=== PATIENT | female | born 1935 | race Two or more races ===

== ENCOUNTER → 2016-11-29 | Outpatient (CLI) | payer MEDICARE ==
[~2016-11-29] MED LIST: ADV250INH INH; AMLO10TA2 PO; ASPI325T PO; AVEL1TAB PO; BACITAB3 PO; CALC600T10 PO; FISH1000 PO; K-TA10TA2 PO; LASI20TA PO; NICO21PAT TD; OMEP20CA3 PO; SIMV20TA2 PO; VITA100066 PO; VITMTA PO
--- NOTE | 2016-11-29 13:41 | REP ---
Chest x-ray: Two views. History: Chronic obstructive pulmonary disease. Findings: The lungs are somewhat hyperinflated but clear. Heart size is at the upper range of normal. The aorta is calcific and a little tortuous. There are degenerative changes in the thoracic spine. Impression: Hyperinflation. Borderline heart size. Otherwise no acute disease. Signed by Kranthi Allred MD 11/29/2016 04:22 P
== END ==
LOC: M ADAMS 12:49
PROVIDERS: ATTEND Family Medicine
DX: J44.9 Chronic obstructive pulmonary disease, unspecified (principal); R91.8 Other nonspecific abnormal finding of lung field; I11.9 Hypertensive heart disease without heart failure; M19.90 Unspecified osteoarthritis, unspecified site; M46.92 Unspecified inflammatory spondylopathy, cervical region; E78.5 Hyperlipidemia, unspecified; E21.0 Primary hyperparathyroidism; M81.0 Age-related osteoporosis without current pathological fracture; Z72.0 Tobacco use; Z71.6 Tobacco abuse counseling; R93.1 Abnormal findings on diagnostic imaging of heart and coronary circulation
CPT/HCPCS: 71020; 94010; G0463

== ENCOUNTER → 2017-01-19 | Outpatient (REF) | payer MEDICARE ==
[2017-01-19 12:45] LABS: MEAN CORPUSCULAR HEMOGLOBIN 28.4 pg (27.0-33.0); MEAN CORPUSCULAR HGB CONC 32.3 g/dl (32.0-36.5); MEAN CORPUSCULAR VOLUME 87.9 fl (80.0-96.0); RED CELL DISTRIBUTION WIDTH 14.5 % (11.5-14.5); WHITE BLOOD COUNT 9.9 K/mm3 (4.0-10.0)
[2017-01-19 13:19] LABS: ALBUMIN 3.2 GM/DL (3.2-5.2); ALBUMIN/GLOBULIN RATIO 0.86 (1.00-1.93); ALKALINE PHOSPHATASE 55 U/L (45-117); ALT/SGPT 31 U/L (12-78); ANION GAP 7 MEQ/L (8-16); AST/SGOT 35 U/L (15-37); BILIRUBIN,TOTAL 0.4 MG/DL (0.2-1.0); BLOOD UREA NITROGEN 14 MG/DL (7-18); CALCIUM LEVEL 9.4 MG/DL (8.8-10.2); CARBON DIOXIDE LEVEL 29 MEQ/L (21-32); CHLORIDE LEVEL 107 MEQ/L (98-107); CHOLESTEROL LEVEL 170 MG/DL (<200); CREATININE FOR GFR 0.61 MG/DL (0.55-1.02); FREE T4 1.63 NG/DL (0.76-1.46); GLOMERULAR FILTRATION RATE > 60.0 (>39); GLUCOSE, FASTING 90 MG/DL (83-110); POTASSIUM SERUM 3.8 MEQ/L (3.5-5.1); SODIUM LEVEL 143 MEQ/L (136-145); TOTAL PROTEIN 6.9 GM/DL (6.4-8.2); TRIGLYCERIDES LEVEL 109 MG/DL (<150)
== END ==
LOC: M SFHCADAM 10:13
PROVIDERS: ATTEND Family Medicine
DX: M19.90 Unspecified osteoarthritis, unspecified site (principal); E78.5 Hyperlipidemia, unspecified; M81.0 Age-related osteoporosis without current pathological fracture

== ENCOUNTER → 2017-01-19 | Outpatient (CLI) | payer MEDICARE ==
--- NOTE | 2017-01-19 11:36 | REP ---
LEFT HAND, FOUR VIEWS: HISTORY: Inflammatory arthritis. There is no acute fracture or dislocation. There is narrowing of the metacarpal phalangeal , intermediate and distal interphalangeal joint spaces. Osteophytes are present at the distal interphalangeal joint spaces. There is narrowing of the first carpometacarpal joint space. A subchondral cyst is present in the radius. Calcification is present adjacent to the distal ulna. This likely represents chondrocalcinosis. There is a swan neck deformity of the distal interphalangeal joint of the second digit. IMPRESSION: Degenerative change as described above. Signed by Heraclio Hidalgo MD 01/19/2017 12:14 P
== END ==
LOC: M ADAMS 10:27
PROVIDERS: ATTEND Family Medicine
DX: M19.042 Primary osteoarthritis, left hand (principal); E78.5 Hyperlipidemia, unspecified; M81.0 Age-related osteoporosis without current pathological fracture

== ENCOUNTER → 2017-07-12 | Outpatient (REF) | payer MEDICARE ==
[~2017-07-12] MED LIST changes: -AVEL1TAB PO; +AVEL1TAB3 PO; +BACITAB PO; -BACITAB3 PO; -CALC600T10 PO; +CALC600T31 PO; +TRAM50TA2 PO
[2017-07-12 20:09] LABS: ANION GAP 5 MEQ/L (8-16); BLOOD UREA NITROGEN 23 MG/DL (7-18); CALCIUM LEVEL 9.9 MG/DL (8.8-10.2); CARBON DIOXIDE LEVEL 34 MEQ/L (21-32); CHLORIDE LEVEL 107 MEQ/L (98-107); CREATININE FOR GFR 0.78 MG/DL (0.55-1.02); GLOMERULAR FILTRATION RATE > 60.0 (>32); GLUCOSE, FASTING 125 MG/DL (83-110); SODIUM LEVEL 146 MEQ/L (136-145)
== END ==
LOC: M SFHCADAM 15:26
PROVIDERS: ATTEND Family Medicine
DX: M81.0 Age-related osteoporosis without current pathological fracture (principal); T45.8X5A Adverse effect of other primarily systemic and hematological agents, initial encounter; I11.9 Hypertensive heart disease without heart failure
CPT/HCPCS: 80048; G0463

== ENCOUNTER → 2017-11-02 | Outpatient (REF) | payer MEDICARE ==
[2017-11-02 19:09] LABS: HEMATOCRIT 41.5 % (36.0-47.0); MEAN CORPUSCULAR HEMOGLOBIN 30.3 pg (27.0-33.0); MEAN CORPUSCULAR HGB CONC 31.3 g/dl (32.0-36.5); MEAN CORPUSCULAR VOLUME 96.7 fl (80.0-96.0); PLATELET COUNT, AUTOMATED 276 10^3/uL (150-450); RED BLOOD COUNT 4.29 10^6/uL (4.00-5.40); RED CELL DISTRIBUTION WIDTH 14.9 % (11.5-14.5)
[2017-11-02 20:04] LABS: ALBUMIN 3.7 GM/DL (3.2-5.2); ALBUMIN/GLOBULIN RATIO 1.28 (1.00-1.93); ALKALINE PHOSPHATASE 44 U/L (45-117); ALT/SGPT 34 U/L (12-78); ANION GAP 6 MEQ/L (8-16); AST/SGOT 20 U/L (7-37); BILIRUBIN,TOTAL 0.2 MG/DL (0.2-1.0); BLOOD UREA NITROGEN 24 MG/DL (7-18); CALCIUM LEVEL 9.5 MG/DL (8.8-10.2); CARBON DIOXIDE LEVEL 32 MEQ/L (21-32); CHLORIDE LEVEL 108 MEQ/L (98-107); CHOLESTEROL LEVEL 180 MG/DL (<200); CREATININE FOR GFR 0.74 MG/DL (0.55-1.02); FREE T4 1.12 NG/DL (0.76-1.46); GLOMERULAR FILTRATION RATE > 60.0 (>32); GLUCOSE, FASTING 107 MG/DL (83-110); HDL CHOLESTEROL 75 MG/DL (>40); NON-HDL-C 105 MG/DL; POTASSIUM SERUM 4.1 MEQ/L (3.5-5.1); SODIUM LEVEL 146 MEQ/L (136-145); TOTAL PROTEIN 6.6 GM/DL (6.4-8.2); TRIGLYCERIDES LEVEL 100 MG/DL (<150)
== END ==
LOC: M SFHCADAM 15:19
DX: J44.9 Chronic obstructive pulmonary disease, unspecified (principal); I11.9 Hypertensive heart disease without heart failure; R94.6 Abnormal results of thyroid function studies; E78.5 Hyperlipidemia, unspecified
CPT/HCPCS: 84443

== ENCOUNTER → 2018-02-19 | Outpatient (REF) | payer MEDICARE | LOC: M LAB REF 18:41 | DX: N39.0 Urinary tract infection, site not specified (principal) | CPT/HCPCS: 87086 ==

== ENCOUNTER → 2018-04-03 | Outpatient (CLI) | payer MEDICARE | LOC: M RAD 13:51 | DX: N63.20 Unspecified lump in the left breast, unspecified quadrant (principal); R92.1 Mammographic calcification found on diagnostic imaging of breast; R92.8 Other abnormal and inconclusive findings on diagnostic imaging of breast | CPT/HCPCS: 77066 ==

== ENCOUNTER → 2018-04-25 | Outpatient (REF) | payer MEDICARE | LOC: M LAB REF 10:00 | DX: C50.012 Malignant neoplasm of nipple and areola, left female breast (principal) | CPT/HCPCS: 88305 ==

== ENCOUNTER 2018-05-15 13:15 | Day surgery (SDC) | payer MEDICARE ==
[2018-05-15] MEDS ORDERED: LIDOCAINE 1% MDV 20ML VIAL SQ (13:30)
[2018-05-15] MEDS: LR 1,000 ML IV (14:00)
[2018-05-15] MEDS ORDERED: LIDOCAINE 2% INJ 100 MG/5 ML SDV (FOR ANES.) As Ordered (14:45)
[2018-05-15] MEDS ORDERED: ROCURONIUM BROMIDE 50 MG/5 ML VIAL As Ordered (14:45)
[2018-05-15] MEDS ORDERED: dexameTHASONE 4 MG/ML 1ML VIAL (J1100) As Ordered (14:45)
[2018-05-15] MEDS ORDERED: PROPOFOL 200 MG/20 ML VIAL As Ordered ×2 (14:45→16:44)
[2018-05-15] MEDS ORDERED: ONDANSETRON 4MG/2ML VIAL (J2405) As Ordered (14:45)
[2018-05-15] MEDS ORDERED: fentaNYL 100 MCG/2 ML INJECTION (J3010) As Ordered (16:00)
[2018-05-15] MEDS ORDERED: MIDAZOLAM INJ 2 MG/2 ML VIAL (J2250) As Ordered (16:03)
[2018-05-15] MEDS ORDERED: KETOROLAC 60 MG/2 ML VIAL (J1885) As Ordered (16:35)
[2018-05-15] MEDS: LIDOCAINE 1% SDV INJ 30 ML VIAL As Ordered ×2 (17:13→17:14)
[2018-05-15] MEDS ORDERED: PERCOCET 5MG/325MG TAB PO (18:45)
[2018-05-15] MEDS ORDERED: fentaNYL 100 MCG/2 ML INJECTION (J3010) IV (18:45)
[2018-05-15] MEDS ORDERED: LR 1,000 ML IV (18:45)
[2018-05-15] MEDS ORDERED: traMADol 50 MG TAB PO (18:45)
[2018-05-15] MEDS ORDERED: MORPHINE 10 MG/ML 1ML VIAL (J2270) IV (18:45)
[2018-05-15] MEDS ORDERED: ACETAMINOPHEN TAB 650MG DOSE (2X325MG) PO (18:45)
[2018-05-15] MEDS ORDERED: ONDANSETRON 4MG/2ML VIAL (J2405) IV (18:45)
== END 2018-05-15 19:05 | disposition home or self-care (01) ==
LOC: M SDC 13:15
DX: C50.912 Malignant neoplasm of unspecified site of left female breast (principal); E78.5 Hyperlipidemia, unspecified; K21.9 Gastro-esophageal reflux disease without esophagitis; F17.210 Nicotine dependence, cigarettes, uncomplicated; Z79.82 Long term (current) use of aspirin; Z79.899 Other long term (current) drug therapy; Z17.1 Estrogen receptor negative status [ER-]
CPT/HCPCS: 19301

== ENCOUNTER 2018-06-09 10:17 | Emergency (ER) | payer MEDICARE ==
[2018-06-09 11:16] LABS: BASO # 0.1 10^3/uL (0.0-0.2); BASO % 0.5 % (0.0-1.0); EOS # 0.3 10^3/uL (0.0-0.50); EOS % 3.2 % (0.0-3.0); HEMATOCRIT 41.7 % (36.0-47.0); HEMOGLOBIN 13.7 g/dl (12.0-15.5); IMMATURE GRANULOCYTE % 0.4 % (0-3.0); LYMPH # 1.5 10^3/uL (1.5-4.5); LYMPH % 14.9 % (24.0-44.0); MEAN CORPUSCULAR HEMOGLOBIN 30.9 pg (27.0-33.0); MEAN CORPUSCULAR HGB CONC 32.9 g/dl (32.0-36.5); MEAN CORPUSCULAR VOLUME 94.1 fl (80.0-96.0); MONO # 0.9 10^3/uL (0.0-0.8); NEUTROPHILS # 7.5 10^3/uL (1.8-7.7); PLATELET COUNT, AUTOMATED 212 10^3/uL (150-450); RED BLOOD COUNT 4.43 10^6/uL (4.00-5.40); RED CELL DISTRIBUTION WIDTH 14.5 % (11.5-14.5); WHITE BLOOD COUNT 10.4 10^3/uL (4.0-10.0)
[2018-06-09 11:25] LABS: PROTHROMBIN TIME 12.2 SECONDS (12.1-14.4)
[2018-06-09] MEDS: ONDANSETRON 4MG/2ML VIAL (J2405) IV (11:39)
[2018-06-09] MEDS: MORPHINE 2 MG/ML 1ML SYRINGE (J2270) IV ×2 (11:40→12:17)
[2018-06-09 11:44] LABS: ALBUMIN/GLOBULIN RATIO 0.97 (1.00-1.93); ALKALINE PHOSPHATASE 43 U/L (45-117); ALT/SGPT 29 U/L (12-78); ANION GAP 6 MEQ/L (8-16); AST/SGOT 23 U/L (7-37); BILIRUBIN,DIRECT 0.1 MG/DL (0.0-0.2); BILIRUBIN,TOTAL 0.3 MG/DL (0.2-1.0); BLOOD UREA NITROGEN 15 MG/DL (7-18); CALCIUM LEVEL 8.6 MG/DL (8.8-10.2); CARBON DIOXIDE LEVEL 29 MEQ/L (21-32); CHLORIDE LEVEL 110 MEQ/L (98-107); CPK CREATINE PHOSPHOKINASE 128 U/L (26-192); CREATININE FOR GFR 0.78 MG/DL (0.55-1.30); GLOMERULAR FILTRATION RATE > 60.0 (>32); GLUCOSE, FASTING 90 MG/DL (70-100); LIPASE 97 U/L (73-393); MB/CK RELATIVE INDEX 2.34 (< OR =4); SODIUM LEVEL 145 MEQ/L (136-145); TOTAL PROTEIN 6.1 GM/DL (6.4-8.2); TROPONIN I < 0.02 NG/ML (< 0.10)
[2018-06-09 11:49] LABS: NT-PRO BNP 851 PG/ML (<450)
[2018-06-09] MEDS: NORCO, ANEXSIA 5/325MG TABLET (HYDROcodone/ACETAMINOPHEN) PO (13:48)
== END 2018-06-09 14:40 | disposition home or self-care (01) ==
LOC: M ED 10:17
DX: R07.9 Chest pain, unspecified (principal); R10.9 Unspecified abdominal pain; K57.90 Diverticulosis of intestine, part unspecified, without perforation or abscess without bleeding; K80.20 Calculus of gallbladder without cholecystitis without obstruction; K21.9 Gastro-esophageal reflux disease without esophagitis; E78.00 Pure hypercholesterolemia, unspecified; F17.200 Nicotine dependence, unspecified, uncomplicated
CPT/HCPCS: J2405

== ENCOUNTER 2018-06-13 10:49 | Inpatient (IN) | payer MEDICARE ==
[2018-06-13] MEDS ORDERED: ONDANSETRON 4MG/2ML VIAL (J2405) As Ordered (11:24)
[2018-06-13] MEDS: ONDANSETRON 4MG/2ML VIAL (J2405) IV (11:29)
[2018-06-13 11:38] LABS: BASO # 0.1 10^3/uL (0.0-0.2); BASO % 0.5 % (0.0-1.0); EOS # 0.1 10^3/uL (0.0-0.50); EOS % 1.1 % (0.0-3.0); HEMATOCRIT 41.7 % (36.0-47.0); HEMOGLOBIN 13.7 g/dl (12.0-15.5); IMMATURE GRANULOCYTE % 0.4 % (0-3.0); LYMPH # 1.1 10^3/uL (1.5-4.5); LYMPH % 11.1 % (24.0-44.0); MEAN CORPUSCULAR HEMOGLOBIN 30.4 pg (27.0-33.0); MEAN CORPUSCULAR HGB CONC 32.9 g/dl (32.0-36.5); MEAN CORPUSCULAR VOLUME 92.5 fl (80.0-96.0); MONO # 0.6 10^3/uL (0.0-0.8); MONO % 5.9 % (0.0-5.0); NEUTROPHILS # 7.8 10^3/uL (1.8-7.7); PLATELET COUNT, AUTOMATED 212 10^3/uL (150-450); RED BLOOD COUNT 4.51 10^6/uL (4.00-5.40); RED CELL DISTRIBUTION WIDTH 14.2 % (11.5-14.5); WHITE BLOOD COUNT 9.7 10^3/uL (4.0-10.0)
[2018-06-13 12:00] LABS: ALBUMIN 3.4 GM/DL (3.2-5.2); ALBUMIN/GLOBULIN RATIO 0.94 (1.00-1.93); ALKALINE PHOSPHATASE 45 U/L (45-117); ALT/SGPT 33 U/L (12-78); ANION GAP 9 MEQ/L (8-16); AST/SGOT 30 U/L (7-37); BILIRUBIN,DIRECT 0.1 MG/DL (0.0-0.2); BILIRUBIN,TOTAL 0.3 MG/DL (0.2-1.0); BLOOD UREA NITROGEN 17 MG/DL (7-18); CALCIUM LEVEL 9.2 MG/DL (8.8-10.2); CARBON DIOXIDE LEVEL 28 MEQ/L (21-32); CHLORIDE LEVEL 104 MEQ/L (98-107); CPK CREATINE PHOSPHOKINASE 166 U/L (26-192); CREATININE FOR GFR 0.75 MG/DL (0.55-1.30); GLOMERULAR FILTRATION RATE > 60.0 (>32); GLUCOSE, FASTING 80 MG/DL (70-100); LIPASE 74 U/L (73-393); POTASSIUM SERUM 3.9 MEQ/L (3.5-5.1); SODIUM LEVEL 141 MEQ/L (136-145); TROPONIN I 0.09 NG/ML (< 0.10)
[2018-06-13] MEDS: MORPHINE 4 MG/ML 1ML VIAL/SYRINGE (J2270) IV ×3 (12:01→17:33)
[2018-06-13 12:06] LABS: CK-MB VALUE MASS 5.9 NG/ML (<3.6); MB/CK RELATIVE INDEX 3.55 (< OR =4); NT-PRO BNP 1579 PG/ML (<450)
[2018-06-13] MEDS: ULTRACET TAB PO (17:54)
[2018-06-13] MEDS: ACYCLOVIR 500 MG in D5W MINI-BAG PLUS 100 ML IV (17:54)
[2018-06-13] MEDS: PREGABALIN 100 MG CAP (LYRICA) PO ×2 (20:40→20:52)
[2018-06-13] MEDS: HYDROXYCHLOROQUINE 200 MG TAB PO ×2 (20:40→22:44)
[2018-06-13] MEDS: ASPIRIN 325 MG TAB PO (20:51)
[2018-06-13] MEDS: SIMVASTATIN 20 MG TAB PO (20:52)
[2018-06-13] MEDS: FOLIC ACID 1 MG TAB PO (20:52)
[2018-06-13] MEDS: VITAMIN D 1,000 INTERNATIONAL UNITS TABLET PO (20:52)
[2018-06-13] MEDS: OMEPRAZOLE 20 MG CAP PO (20:52)
[2018-06-13] MEDS: traMADol 50 MG TAB PO (20:55)
[2018-06-13] MEDS: LATANOPROST 0.005% OPHTH SOLN 2.5 ML OU (20:58)
[2018-06-13] MEDS: ADVAIR HFA 115/21MCG INHALER INH (21:00)
[2018-06-14] MEDS: ACYCLOVIR 500 MG in D5W MINI-BAG PLUS 100 ML IV ×3 (02:13→17:44)
[2018-06-14] MEDS: MORPHINE 4 MG/ML 1ML VIAL/SYRINGE (J2270) IV (04:51)
[2018-06-14 06:24] LABS: BASO % 0.4 % (0.0-1.0); EOS # 0.2 10^3/uL (0.0-0.50); EOS % 1.7 % (0.0-3.0); HEMATOCRIT 39.3 % (36.0-47.0); HEMOGLOBIN 13.3 g/dl (12.0-15.5); IMMATURE GRANULOCYTE % 0.5 % (0-3.0); LYMPH # 0.9 10^3/uL (1.5-4.5); LYMPH % 8.7 % (24.0-44.0); MEAN CORPUSCULAR HEMOGLOBIN 30.4 pg (27.0-33.0); MEAN CORPUSCULAR HGB CONC 33.8 g/dl (32.0-36.5); MEAN CORPUSCULAR VOLUME 89.7 fl (80.0-96.0); MONO # 0.9 10^3/uL (0.0-0.8); MONO % 8.5 % (0.0-5.0); NEUTROPHILS # 8.7 10^3/uL (1.8-7.7); NEUTROPHILS % 80.2 % (36.0-66.0); PLATELET COUNT, AUTOMATED 198 10^3/uL (150-450); RED BLOOD COUNT 4.38 10^6/uL (4.00-5.40); RED CELL DISTRIBUTION WIDTH 13.6 % (11.5-14.5); WHITE BLOOD COUNT 10.8 10^3/uL (4.0-10.0)
[2018-06-14 06:47] LABS: ALBUMIN/GLOBULIN RATIO 0.83 (1.00-1.93); ALKALINE PHOSPHATASE 39 U/L (45-117); ALT/SGPT 29 U/L (12-78); ANION GAP 10 MEQ/L (8-16); AST/SGOT 31 U/L (7-37); BILIRUBIN,TOTAL 0.5 MG/DL (0.2-1.0); BLOOD UREA NITROGEN 13 MG/DL (7-18); CALCIUM LEVEL 8.6 MG/DL (8.8-10.2); CARBON DIOXIDE LEVEL 27 MEQ/L (21-32); CHLORIDE LEVEL 102 MEQ/L (98-107); CREATININE FOR GFR 0.54 MG/DL (0.55-1.30); GLOMERULAR FILTRATION RATE > 60.0 (>32); GLUCOSE, FASTING 59 MG/DL (70-100); MAGNESIUM LEVEL 1.7 MG/DL (1.8-2.4); POTASSIUM SERUM 3.8 MEQ/L (3.5-5.1); SODIUM LEVEL 139 MEQ/L (136-145); THYROID STIMULATING HORMONE 0.813 uIU/ML (0.358-3.740); TOTAL PROTEIN 6.6 GM/DL (6.4-8.2)
[2018-06-14 07:41] LABS: BEDSIDE GLUCOSE 82 MG/DL (83-110)
[2018-06-14] MEDS: ADVAIR HFA 115/21MCG INHALER INH ×2 (08:09→21:25)
[2018-06-14] MEDS: FOLIC ACID 1 MG TAB PO ×2 (08:47→20:40)
[2018-06-14] MEDS: MULTIVITAMINS/MINERALS THERAP 1 TAB PO (08:47)
[2018-06-14] MEDS: ASPIRIN 325 MG TAB PO ×2 (08:47→20:40)
[2018-06-14] MEDS: PREGABALIN 100 MG CAP (LYRICA) PO ×2 (08:47→14:41)
[2018-06-14] MEDS: HYDROXYCHLOROQUINE 200 MG TAB PO (08:47)
[2018-06-14] MEDS: ALBUTEROL SULFATE 2.5 MG/0.5 ML INH NEB SOLN INH ×3 (12:00→21:24)
[2018-06-14] MEDS ORDERED: ALBUTEROL SULFATE 2.5 MG/0.5 ML INH NEB SOLN INH (13:45)
[2018-06-14] MEDS: LATANOPROST 0.005% OPHTH SOLN 2.5 ML OU (20:40)
[2018-06-14] MEDS: OMEPRAZOLE 20 MG CAP PO (20:40)
[2018-06-14] MEDS: VITAMIN D 1,000 INTERNATIONAL UNITS TABLET PO (20:40)
[2018-06-14] MEDS: SIMVASTATIN 20 MG TAB PO (20:40)
[2018-06-14] MEDS: ACETAMINOPHEN TAB 650MG DOSE (2X325MG) PO (20:54)
[2018-06-15] MEDS: ACYCLOVIR 500 MG in D5W MINI-BAG PLUS 100 ML IV ×3 (01:58→17:19)
[2018-06-15] MEDS: ADVAIR HFA 115/21MCG INHALER INH ×2 (07:25→20:27)
[2018-06-15] MEDS: ALBUTEROL SULFATE 2.5 MG/0.5 ML INH NEB SOLN INH ×4 (07:26→20:27)
[2018-06-15] MEDS: PREGABALIN 100 MG CAP (LYRICA) PO ×3 (09:00→22:03)
[2018-06-15] MEDS: HYDROXYCHLOROQUINE 200 MG TAB PO ×2 (09:00→22:03)
[2018-06-15] MEDS: FOLIC ACID 1 MG TAB PO ×2 (09:05→22:03)
[2018-06-15] MEDS: ASPIRIN 325 MG TAB PO ×2 (09:05→22:03)
[2018-06-15] MEDS: MULTIVITAMINS/MINERALS THERAP 1 TAB PO (09:05)
[2018-06-15] MEDS ORDERED: methylPREDNISolone SUSP 40 MG/ML (DEPO-medrol) VIAL (J1030) As Ordered (12:00)
[2018-06-15] MEDS ORDERED: LIDOCAINE 1% SDV INJ 30 ML VIAL As Ordered (12:00)
[2018-06-15] MEDS ORDERED: ISOVUE-M 300 61% 15ML VIAL (Q9967) As Ordered (12:01)
[2018-06-15] MEDS: LATANOPROST 0.005% OPHTH SOLN 2.5 ML OU (21:00)
[2018-06-15] MEDS: SIMVASTATIN 20 MG TAB PO (22:03)
[2018-06-15] MEDS: VITAMIN D 1,000 INTERNATIONAL UNITS TABLET PO (22:03)
[2018-06-15] MEDS: OMEPRAZOLE 20 MG CAP PO (22:03)
[2018-06-16] MEDS: ACYCLOVIR 500 MG in D5W MINI-BAG PLUS 100 ML IV (01:23)
[2018-06-16 06:01] LABS: HEMATOCRIT 38.7 % (36.0-47.0); MEAN CORPUSCULAR HEMOGLOBIN 30.2 pg (27.0-33.0); MEAN CORPUSCULAR HGB CONC 33.6 g/dl (32.0-36.5); PLATELET COUNT, AUTOMATED 186 10^3/uL (150-450); RED CELL DISTRIBUTION WIDTH 14.6 % (11.5-14.5); WHITE BLOOD COUNT 11.8 10^3/uL (4.0-10.0)
[2018-06-16 06:17] LABS: ANION GAP 9 MEQ/L (8-16); BLOOD UREA NITROGEN 28 MG/DL (7-18); CALCIUM LEVEL 9.3 MG/DL (8.8-10.2); CARBON DIOXIDE LEVEL 28 MEQ/L (21-32); CHLORIDE LEVEL 104 MEQ/L (98-107); CREATININE FOR GFR 2.85 MG/DL (0.55-1.30); GLOMERULAR FILTRATION RATE 16.9 (>32); GLUCOSE, FASTING 129 MG/DL (70-100); MAGNESIUM LEVEL 2.4 MG/DL (1.8-2.4); POTASSIUM SERUM 3.7 MEQ/L (3.5-5.1); SODIUM LEVEL 141 MEQ/L (136-145)
[2018-06-16] MEDS: ALBUTEROL SULFATE 2.5 MG/0.5 ML INH NEB SOLN INH ×4 (08:00→20:00)
[2018-06-16] MEDS: ADVAIR HFA 115/21MCG INHALER INH ×2 (08:00→21:41)
[2018-06-16] MEDS: FOLIC ACID 1 MG TAB PO (10:00)
[2018-06-16] MEDS: ASPIRIN 325 MG TAB PO ×2 (10:00→22:06)
[2018-06-16] MEDS: HYDROXYCHLOROQUINE 200 MG TAB PO ×2 (10:00→22:06)
[2018-06-16] MEDS: MULTIVITAMINS/MINERALS THERAP 1 TAB PO (10:00)
[2018-06-16] MEDS: D5W/0.45% SODIUM CHLORIDE 1,000 ML IV ×2 (10:20→18:01)
[2018-06-16 16:49] LABS: ALBUMIN 2.5 GM/DL (3.2-5.2); ANION GAP 10 MEQ/L (8-16); BLOOD UREA NITROGEN 34 MG/DL (7-18); CALCIUM LEVEL 8.7 MG/DL (8.8-10.2); CARBON DIOXIDE LEVEL 27 MEQ/L (21-32); CHLORIDE LEVEL 104 MEQ/L (98-107); CREATININE FOR GFR 3.54 MG/DL (0.55-1.30); GLOMERULAR FILTRATION RATE 13.2 (>32); GLUCOSE, FASTING 136 MG/DL (70-100); PHOSPHORUS LEVEL 3.5 MG/DL (2.5-4.9); POTASSIUM SERUM 3.5 MEQ/L (3.5-5.1); SODIUM LEVEL 141 MEQ/L (136-145)
[2018-06-16] MEDS: FAMOTIDINE 20 MG TAB PO (18:00)
[2018-06-16] MEDS: LATANOPROST 0.005% OPHTH SOLN 2.5 ML OU (22:06)
[2018-06-17] MEDS: D5W/0.45% SODIUM CHLORIDE 1,000 ML IV (01:45)
[2018-06-17 06:33] LABS: HEMATOCRIT 34.2 % (36.0-47.0); HEMOGLOBIN 11.6 g/dl (12.0-15.5); MEAN CORPUSCULAR HEMOGLOBIN 30.9 pg (27.0-33.0); MEAN CORPUSCULAR HGB CONC 33.9 g/dl (32.0-36.5); PLATELET COUNT, AUTOMATED 199 10^3/uL (150-450); RED BLOOD COUNT 3.76 10^6/uL (4.00-5.40); RED CELL DISTRIBUTION WIDTH 14.6 % (11.5-14.5); WHITE BLOOD COUNT 12.5 10^3/uL (4.0-10.0)
[2018-06-17 06:45] LABS: ANION GAP 7 MEQ/L (8-16); BLOOD UREA NITROGEN 35 MG/DL (7-18); CALCIUM LEVEL 8.4 MG/DL (8.8-10.2); CARBON DIOXIDE LEVEL 27 MEQ/L (21-32); CHLORIDE LEVEL 102 MEQ/L (98-107); CREATININE FOR GFR 3.54 MG/DL (0.55-1.30); GLOMERULAR FILTRATION RATE 13.2 (>32); GLUCOSE, FASTING 116 MG/DL (70-100); POTASSIUM SERUM 3.5 MEQ/L (3.5-5.1); SODIUM LEVEL 136 MEQ/L (136-145)
[2018-06-17] MEDS: ALBUTEROL SULFATE 2.5 MG/0.5 ML INH NEB SOLN INH ×4 (08:00→20:00)
[2018-06-17] MEDS: ADVAIR HFA 115/21MCG INHALER INH ×2 (08:37→21:36)
[2018-06-17] MEDS: FAMOTIDINE 20 MG TAB PO (09:40)
[2018-06-17] MEDS: ASPIRIN 325 MG TAB PO ×2 (09:40→21:55)
[2018-06-17] MEDS: HYDROXYCHLOROQUINE 200 MG TAB PO (10:18)
[2018-06-17] MEDS: KCL 20MEQ IN D5/0.45NS 1000ML 1,000 ML IV ×2 (11:43→20:06)
[2018-06-17] MEDS: ACETAMINOPHEN TAB 650MG DOSE (2X325MG) PO (17:16)
[2018-06-17] MEDS: LATANOPROST 0.005% OPHTH SOLN 2.5 ML OU (21:55)
[2018-06-18 00:07] LABS: APPEARANCE, URINE CLEAR (CLEAR); BACTERIA, URINE AUTO 1+ (NEGATIVE); BILIRUBIN, URINE AUTO NEGATIVE (NEGATIVE); BLOOD, URINE BLOOD NEGATIVE (NEGATIVE); COLOR, URINE STRAW (YELLOW); GLUCOSE, URINE (UA) AUTO NEGATIVE (NEGATIVE); KETONE, URINE AUTO NEGATIVE (NEGATIVE); LEUKOCYTE ESTERASE, URINE AUTO NEGATIVE (NEGATIVE); MUCUS, URINE SMALL (NEGATIVE); NITRITE, URINE AUTO NEGATIVE (NEGATIVE); PROTEIN, URINE AUTO NEGATIVE (NEGATIVE); RBC, URINE AUTO 2 /HPF (0-3); SPECIFIC GRAVITY URINE AUTO 1.005 (1.002-1.035); SQUAMOUS EPITHELIAL CELL UR AU 0 /HPF (0-6); UROBILINOGEN, URINE AUTO 0.2 mg/dL (0.0-2.0); WBC, URINE AUTO 3 /HPF (0-3)
[2018-06-18 06:08] LABS: HEMATOCRIT 36.5 % (36.0-47.0); HEMOGLOBIN 12.3 g/dl (12.0-15.5); MEAN CORPUSCULAR HEMOGLOBIN 30.9 pg (27.0-33.0); MEAN CORPUSCULAR HGB CONC 33.7 g/dl (32.0-36.5); MEAN CORPUSCULAR VOLUME 91.7 fl (80.0-96.0); PLATELET COUNT, AUTOMATED 224 10^3/uL (150-450); RED BLOOD COUNT 3.98 10^6/uL (4.00-5.40); RED CELL DISTRIBUTION WIDTH 14.9 % (11.5-14.5); WHITE BLOOD COUNT 12.3 10^3/uL (4.0-10.0)
[2018-06-18 06:09] LABS: ANION GAP 8 MEQ/L (8-16); BLOOD UREA NITROGEN 30 MG/DL (7-18); CARBON DIOXIDE LEVEL 27 MEQ/L (21-32); CHLORIDE LEVEL 110 MEQ/L (98-107); CREATININE FOR GFR 1.89 MG/DL (0.55-1.30); GLOMERULAR FILTRATION RATE 27.2 (>32); GLUCOSE, FASTING 97 MG/DL (70-100); POTASSIUM SERUM 3.9 MEQ/L (3.5-5.1); SODIUM LEVEL 145 MEQ/L (136-145)
[2018-06-18] MEDS: ACETAMINOPHEN TAB 650MG DOSE (2X325MG) PO (06:17)
[2018-06-18] MEDS: ALBUTEROL SULFATE 2.5 MG/0.5 ML INH NEB SOLN INH ×4 (08:00→20:16)
[2018-06-18] MEDS: ADVAIR HFA 115/21MCG INHALER INH ×2 (08:18→20:16)
[2018-06-18] MEDS: ENOXAPARIN 30 MG/0.3 ML SYR (J1650) SC (09:00)
[2018-06-18] MEDS: ASPIRIN 325 MG TAB PO ×2 (09:13→21:31)
[2018-06-18] MEDS: FAMOTIDINE 20 MG TAB PO (09:13)
[2018-06-18] MEDS: HYDROXYCHLOROQUINE 200 MG TAB PO (09:13)
[2018-06-18] MEDS: traMADol 50 MG TAB PO ×2 (09:42→22:29)
[2018-06-18] MEDS ORDERED: LIDOCAINE 1% MDV 20ML VIAL As Ordered (16:56)
[2018-06-18] MEDS: PIPERACILLIN/TAZOBACTAM SOD 2.25 GM in D5W MINI-BAG PLUS 50 ML IV ×2 (17:42→21:31)
[2018-06-18] MEDS: SODIUM CHLORIDE 0.9% INJ 10 ML SYR IV (18:00)
[2018-06-18] MEDS: LATANOPROST 0.005% OPHTH SOLN 2.5 ML OU (21:31)
[2018-06-19] MEDS: PIPERACILLIN/TAZOBACTAM SOD 2.25 GM in D5W MINI-BAG PLUS 50 ML IV ×4 (04:07→21:26)
[2018-06-19] MEDS: SODIUM CHLORIDE 0.9% INJ 10 ML SYR IV ×2 (05:22→17:45)
[2018-06-19 05:33] LABS: HEMATOCRIT 33.7 % (36.0-47.0); HEMOGLOBIN 11.2 g/dl (12.0-15.5); MEAN CORPUSCULAR HEMOGLOBIN 30.9 pg (27.0-33.0); MEAN CORPUSCULAR HGB CONC 33.2 g/dl (32.0-36.5); MEAN CORPUSCULAR VOLUME 93.1 fl (80.0-96.0); PLATELET COUNT, AUTOMATED 216 10^3/uL (150-450); RED BLOOD COUNT 3.62 10^6/uL (4.00-5.40); RED CELL DISTRIBUTION WIDTH 14.8 % (11.5-14.5); WHITE BLOOD COUNT 9.5 10^3/uL (4.0-10.0)
[2018-06-19] MEDS: ACETAMINOPHEN TAB 650MG DOSE (2X325MG) PO ×2 (05:47→16:33)
[2018-06-19 05:53] LABS: ANION GAP 8 MEQ/L (8-16); BLOOD UREA NITROGEN 33 MG/DL (7-18); CALCIUM LEVEL 8.8 MG/DL (8.8-10.2); CARBON DIOXIDE LEVEL 29 MEQ/L (21-32); CHLORIDE LEVEL 111 MEQ/L (98-107); CREATININE FOR GFR 1.25 MG/DL (0.55-1.30); GLOMERULAR FILTRATION RATE 43.8 (>32); GLUCOSE, FASTING 105 MG/DL (70-100); POTASSIUM SERUM 4.1 MEQ/L (3.5-5.1); SODIUM LEVEL 148 MEQ/L (136-145)
[2018-06-19] MEDS: ADVAIR HFA 115/21MCG INHALER INH ×2 (07:40→20:31)
[2018-06-19] MEDS: ALBUTEROL SULFATE 2.5 MG/0.5 ML INH NEB SOLN INH ×4 (07:40→20:00)
[2018-06-19] MEDS: ENOXAPARIN 30 MG/0.3 ML SYR (J1650) SC (08:21)
[2018-06-19] MEDS: FAMOTIDINE 20 MG TAB PO (08:21)
[2018-06-19] MEDS: ASPIRIN 325 MG TAB PO ×2 (08:21→21:25)
[2018-06-19] MEDS: HYDROXYCHLOROQUINE 200 MG TAB PO (08:25)
[2018-06-19] MEDS: D5W 1,000 ML IV (10:46)
[2018-06-19] MEDS: diphenhydrAMINE CREAM 30GM TOP (13:15)
[2018-06-19] MEDS: traMADol 50 MG TAB PO (21:26)
[2018-06-19] MEDS: LATANOPROST 0.005% OPHTH SOLN 2.5 ML OU (21:26)
[2018-06-20] MEDS: diphenhydrAMINE CREAM 30GM TOP ×3 (01:18→22:20)
[2018-06-20] MEDS: D5W 1,000 ML IV ×2 (01:33→13:57)
[2018-06-20] MEDS: PIPERACILLIN/TAZOBACTAM SOD 2.25 GM in D5W MINI-BAG PLUS 50 ML IV ×4 (03:44→21:56)
[2018-06-20] MEDS: ACETAMINOPHEN TAB 650MG DOSE (2X325MG) PO ×3 (03:45→18:06)
[2018-06-20] MEDS: ONDANSETRON 4 MG TAB (S0181) PO ×4 (03:54→22:20)
[2018-06-20] MEDS: SODIUM CHLORIDE 0.9% INJ 10 ML SYR IV ×2 (05:13→15:04)
[2018-06-20 05:32] LABS: HEMATOCRIT 37.3 % (36.0-47.0); HEMOGLOBIN 12.3 g/dl (12.0-15.5); MEAN CORPUSCULAR HEMOGLOBIN 30.4 pg (27.0-33.0); MEAN CORPUSCULAR VOLUME 92.1 fl (80.0-96.0); PLATELET COUNT, AUTOMATED 270 10^3/uL (150-450); RED BLOOD COUNT 4.05 10^6/uL (4.00-5.40); RED CELL DISTRIBUTION WIDTH 14.7 % (11.5-14.5); WHITE BLOOD COUNT 11.3 10^3/uL (4.0-10.0)
[2018-06-20 05:52] LABS: ALBUMIN 2.6 GM/DL (3.2-5.2); ANION GAP 9 MEQ/L (8-16); BLOOD UREA NITROGEN 21 MG/DL (7-18); CALCIUM LEVEL 9.3 MG/DL (8.8-10.2); CARBON DIOXIDE LEVEL 31 MEQ/L (21-32); CHLORIDE LEVEL 105 MEQ/L (98-107); CREATININE FOR GFR 0.85 MG/DL (0.55-1.30); GLOMERULAR FILTRATION RATE > 60.0 (>32); GLUCOSE, FASTING 95 MG/DL (70-100); PHOSPHORUS LEVEL 3.4 MG/DL (2.5-4.9); POTASSIUM SERUM 3.7 MEQ/L (3.5-5.1); SODIUM LEVEL 145 MEQ/L (136-145)
[2018-06-20] MEDS: ALBUTEROL SULFATE 2.5 MG/0.5 ML INH NEB SOLN INH ×4 (08:00→20:00)
[2018-06-20] MEDS: ADVAIR HFA 115/21MCG INHALER INH ×2 (08:31→21:29)
[2018-06-20] MEDS: FAMOTIDINE 20 MG TAB PO (08:59)
[2018-06-20] MEDS: ASPIRIN 325 MG TAB PO ×2 (08:59→21:54)
[2018-06-20] MEDS: traMADol 50 MG TAB PO ×2 (09:00→21:56)
[2018-06-20] MEDS: ENOXAPARIN 30 MG/0.3 ML SYR (J1650) SC (09:00)
[2018-06-20] MEDS: LIDOCAINE 5% (LIDODERM) PATCH TD (09:00)
[2018-06-20] MEDS: HYDROXYCHLOROQUINE 200 MG TAB PO (09:56)
[2018-06-20] MEDS: DOCUSATE SODIUM 100 MG CAP PO ×2 (12:49→21:54)
[2018-06-20 16:28] LABS: BEDSIDE GLUCOSE 136 MG/DL (83-110)
[2018-06-20] MEDS: **NOTE PATIENT COMMENT** MISC XX (21:00)
[2018-06-20] MEDS: zolPIDEM TARTRATE 5 MG TAB PO (21:54)
[2018-06-20] MEDS: SENNA 8.6 MG TAB (SENOKOT) PO (21:54)
[2018-06-20] MEDS: LATANOPROST 0.005% OPHTH SOLN 2.5 ML OU (21:54)
[2018-06-21] MEDS: PIPERACILLIN/TAZOBACTAM SOD 2.25 GM in D5W MINI-BAG PLUS 50 ML IV ×4 (03:41→16:54)
[2018-06-21] MEDS: D5W 1,000 ML IV (04:10)
[2018-06-21] MEDS: SODIUM CHLORIDE 0.9% INJ 10 ML SYR IV ×2 (05:23→16:54)
[2018-06-21 05:27] LABS: HEMATOCRIT 38.8 % (36.0-47.0); HEMOGLOBIN 13.2 g/dl (12.0-15.5); MEAN CORPUSCULAR HEMOGLOBIN 30.3 pg (27.0-33.0); PLATELET COUNT, AUTOMATED 311 10^3/uL (150-450); RED BLOOD COUNT 4.36 10^6/uL (4.00-5.40); RED CELL DISTRIBUTION WIDTH 14.1 % (11.5-14.5); WHITE BLOOD COUNT 11.9 10^3/uL (4.0-10.0)
[2018-06-21 05:49] LABS: ANION GAP 7 MEQ/L (8-16); BLOOD UREA NITROGEN 13 MG/DL (7-18); CALCIUM LEVEL 8.9 MG/DL (8.8-10.2); CARBON DIOXIDE LEVEL 33 MEQ/L (21-32); CHLORIDE LEVEL 96 MEQ/L (98-107); CREATININE FOR GFR 0.71 MG/DL (0.55-1.30); GLOMERULAR FILTRATION RATE > 60.0 (>32); GLUCOSE, FASTING 92 MG/DL (70-100); POTASSIUM SERUM 3.6 MEQ/L (3.5-5.1); SODIUM LEVEL 136 MEQ/L (136-145)
[2018-06-21] MEDS: ACETAMINOPHEN TAB 650MG DOSE (2X325MG) PO ×3 (06:41→16:53)
[2018-06-21] MEDS: diphenhydrAMINE CREAM 30GM TOP (06:42)
[2018-06-21] MEDS: ALBUTEROL SULFATE 2.5 MG/0.5 ML INH NEB SOLN INH ×4 (08:00→20:22)
[2018-06-21] MEDS: BISACODYL 10 MG SUPP PR (08:28)
[2018-06-21] MEDS: LIDOCAINE 5% (LIDODERM) PATCH TD (08:31)
[2018-06-21] MEDS: HYDROXYCHLOROQUINE 200 MG TAB PO (08:31)
[2018-06-21] MEDS: FAMOTIDINE 20 MG TAB PO (08:32)
[2018-06-21] MEDS: ASPIRIN 325 MG TAB PO ×2 (08:32→21:00)
[2018-06-21] MEDS: DOCUSATE SODIUM 100 MG CAP PO ×2 (08:32→21:00)
[2018-06-21] MEDS: ENOXAPARIN 30 MG/0.3 ML SYR (J1650) SC (08:32)
[2018-06-21] MEDS: ADVAIR HFA 115/21MCG INHALER INH ×2 (08:43→20:22)
[2018-06-21] MEDS: ONDANSETRON 4 MG TAB (S0181) PO (11:11)
[2018-06-21] MEDS: KCL 20MEQ IN D5/0.45NS 1000ML 1,000 ML IV (14:02)
[2018-06-21] MEDS ORDERED: risperiDONE 0.25 MG TAB PO ×2 (21:00)
[2018-06-21] MEDS: LATANOPROST 0.005% OPHTH SOLN 2.5 ML OU (21:00)
[2018-06-21] MEDS: SENNA 8.6 MG TAB (SENOKOT) PO (21:00)
[2018-06-21] MEDS: **NOTE PATIENT COMMENT** MISC XX (22:00)
[2018-06-22] MEDS: diphenhydrAMINE CREAM 30GM TOP ×2 (00:14→22:09)
[2018-06-22] MEDS: PIPERACILLIN/TAZOBACTAM SOD 2.25 GM in D5W MINI-BAG PLUS 50 ML IV ×4 (03:51→22:10)
[2018-06-22] MEDS: traMADol 50 MG TAB PO ×2 (05:16→18:55)
[2018-06-22 05:22] LABS: HEMOGLOBIN 14.3 g/dl (12.0-15.5); MEAN CORPUSCULAR HEMOGLOBIN 30.4 pg (27.0-33.0); MEAN CORPUSCULAR VOLUME 89.4 fl (80.0-96.0); PLATELET COUNT, AUTOMATED 337 10^3/uL (150-450); RED CELL DISTRIBUTION WIDTH 14.4 % (11.5-14.5); WHITE BLOOD COUNT 11.6 10^3/uL (4.0-10.0)
[2018-06-22] MEDS: SODIUM CHLORIDE 0.9% INJ 10 ML SYR IV ×3 (05:24→17:41)
[2018-06-22 05:42] LABS: ANION GAP 8 MEQ/L (8-16); BLOOD UREA NITROGEN 12 MG/DL (7-18); CALCIUM LEVEL 9.5 MG/DL (8.8-10.2); CARBON DIOXIDE LEVEL 32 MEQ/L (21-32); CHLORIDE LEVEL 105 MEQ/L (98-107); CREATININE FOR GFR 0.74 MG/DL (0.55-1.30); GLOMERULAR FILTRATION RATE > 60.0 (>32); GLUCOSE, FASTING 97 MG/DL (70-100); POTASSIUM SERUM 3.7 MEQ/L (3.5-5.1); SODIUM LEVEL 145 MEQ/L (136-145)
[2018-06-22] MEDS: ALBUTEROL SULFATE 2.5 MG/0.5 ML INH NEB SOLN INH ×4 (08:00→20:37)
[2018-06-22] MEDS: ASPIRIN 325 MG TAB PO ×2 (10:09→22:09)
[2018-06-22] MEDS: ACETAMINOPHEN TAB 650MG DOSE (2X325MG) PO ×2 (10:09→15:21)
[2018-06-22] MEDS: DOCUSATE SODIUM 100 MG CAP PO ×2 (10:10→22:08)
[2018-06-22] MEDS: ENOXAPARIN 30 MG/0.3 ML SYR (J1650) SC (10:10)
[2018-06-22] MEDS: FAMOTIDINE 20 MG TAB PO (10:10)
[2018-06-22] MEDS: HYDROXYCHLOROQUINE 200 MG TAB PO (10:10)
[2018-06-22] MEDS: LIDOCAINE 5% (LIDODERM) PATCH TD (10:12)
[2018-06-22] MEDS: KCL 20MEQ IN D5/0.45NS 1000ML 1,000 ML IV (11:12)
[2018-06-22] MEDS: ADVAIR HFA 115/21MCG INHALER INH ×2 (11:40→20:37)
[2018-06-22] MEDS: NYSTATIN 500,000 U/5 ML SUSP UDC PO ×4 (13:00→22:10)
[2018-06-22] MEDS: SENNA 8.6 MG TAB (SENOKOT) PO (22:08)
[2018-06-22] MEDS: **NOTE PATIENT COMMENT** MISC XX (22:09)
[2018-06-22] MEDS: LATANOPROST 0.005% OPHTH SOLN 2.5 ML OU (22:10)
[2018-06-23] MEDS: PIPERACILLIN/TAZOBACTAM SOD 2.25 GM in D5W MINI-BAG PLUS 50 ML IV ×4 (04:09→20:38)
[2018-06-23] MEDS: ACETAMINOPHEN TAB 650MG DOSE (2X325MG) PO ×4 (04:10→20:37)
[2018-06-23] MEDS: SODIUM CHLORIDE 0.9% INJ 10 ML SYR IV ×4 (05:03→21:40)
[2018-06-23 06:41] LABS: HEMATOCRIT 37.9 % (36.0-47.0); HEMOGLOBIN 12.8 g/dl (12.0-15.5); MEAN CORPUSCULAR HEMOGLOBIN 30.6 pg (27.0-33.0); MEAN CORPUSCULAR HGB CONC 33.8 g/dl (32.0-36.5); MEAN CORPUSCULAR VOLUME 90.7 fl (80.0-96.0); PLATELET COUNT, AUTOMATED 306 10^3/uL (150-450); RED BLOOD COUNT 4.18 10^6/uL (4.00-5.40); RED CELL DISTRIBUTION WIDTH 14.6 % (11.5-14.5); WHITE BLOOD COUNT 12.3 10^3/uL (4.0-10.0)
[2018-06-23 06:54] LABS: ALBUMIN 2.5 GM/DL (3.2-5.2); ANION GAP 6 MEQ/L (8-16); BLOOD UREA NITROGEN 21 MG/DL (7-18); CALCIUM LEVEL 9.1 MG/DL (8.8-10.2); CARBON DIOXIDE LEVEL 30 MEQ/L (21-32); CHLORIDE LEVEL 108 MEQ/L (98-107); CREATININE FOR GFR 0.81 MG/DL (0.55-1.30); GLOMERULAR FILTRATION RATE > 60.0 (>32); GLUCOSE, FASTING 91 MG/DL (70-100); PHOSPHORUS LEVEL 2.8 MG/DL (2.5-4.9); POTASSIUM SERUM 3.8 MEQ/L (3.5-5.1); SODIUM LEVEL 144 MEQ/L (136-145)
[2018-06-23] MEDS: ADVAIR HFA 115/21MCG INHALER INH ×2 (07:44→19:58)
[2018-06-23] MEDS: ALBUTEROL SULFATE 2.5 MG/0.5 ML INH NEB SOLN INH ×4 (07:44→19:57)
[2018-06-23] MEDS: LIDOCAINE 5% (LIDODERM) PATCH TD (08:10)
[2018-06-23] MEDS: ASPIRIN 325 MG TAB PO ×2 (09:24→20:36)
[2018-06-23] MEDS: FAMOTIDINE 20 MG TAB PO (09:24)
[2018-06-23] MEDS: NYSTATIN 500,000 U/5 ML SUSP UDC PO ×4 (09:24→20:36)
[2018-06-23] MEDS: DOCUSATE SODIUM 100 MG CAP PO ×2 (09:24→20:37)
[2018-06-23] MEDS: HYDROXYCHLOROQUINE 200 MG TAB PO (09:24)
[2018-06-23] MEDS: ENOXAPARIN 30 MG/0.3 ML SYR (J1650) SC (09:25)
[2018-06-23] MEDS: traMADol 50 MG TAB PO (10:01)
[2018-06-23] MEDS: SENNA 8.6 MG TAB (SENOKOT) PO (20:37)
[2018-06-23] MEDS: LATANOPROST 0.005% OPHTH SOLN 2.5 ML OU (20:41)
[2018-06-23] MEDS: **NOTE PATIENT COMMENT** MISC XX (21:29)
[2018-06-24] MEDS: traMADol 50 MG TAB PO ×2 (01:11→20:22)
[2018-06-24] MEDS: PIPERACILLIN/TAZOBACTAM SOD 2.25 GM in D5W MINI-BAG PLUS 50 ML IV ×4 (04:51→20:23)
[2018-06-24] MEDS: SODIUM CHLORIDE 0.9% INJ 10 ML SYR IV ×2 (06:00→17:45)
[2018-06-24 06:16] LABS: BASO # 0.1 10^3/uL (0.0-0.2); BASO % 0.9 % (0.0-1.0); EOS # 0.6 10^3/uL (0.0-0.50); EOS % 5.3 % (0.0-3.0); HEMATOCRIT 38.3 % (36.0-47.0); HEMOGLOBIN 12.7 g/dl (12.0-15.5); LYMPH # 2.9 10^3/uL (1.5-4.5); LYMPH % 25.2 % (24.0-44.0); MEAN CORPUSCULAR HEMOGLOBIN 30.6 pg (27.0-33.0); MEAN CORPUSCULAR HGB CONC 33.2 g/dl (32.0-36.5); MEAN CORPUSCULAR VOLUME 92.3 fl (80.0-96.0); MONO # 1.1 10^3/uL (0.0-0.8); MONO % 9.7 % (0.0-5.0); NEUTROPHILS # 6.3 10^3/uL (1.8-7.7); NEUTROPHILS % 54.9 % (36.0-66.0); PLATELET COUNT, AUTOMATED 306 10^3/uL (150-450); RED BLOOD COUNT 4.15 10^6/uL (4.00-5.40); RED CELL DISTRIBUTION WIDTH 14.7 % (11.5-14.5); WHITE BLOOD COUNT 11.5 10^3/uL (4.0-10.0)
[2018-06-24 06:46] LABS: ALBUMIN 2.5 GM/DL (3.2-5.2); ANION GAP 7 MEQ/L (8-16); BLOOD UREA NITROGEN 23 MG/DL (7-18); CALCIUM LEVEL 9.2 MG/DL (8.8-10.2); CARBON DIOXIDE LEVEL 30 MEQ/L (21-32); CHLORIDE LEVEL 108 MEQ/L (98-107); CREATININE FOR GFR 0.78 MG/DL (0.55-1.30); GLOMERULAR FILTRATION RATE > 60.0 (>32); GLUCOSE, FASTING 85 MG/DL (70-100); PHOSPHORUS LEVEL 2.9 MG/DL (2.5-4.9); POTASSIUM SERUM 3.7 MEQ/L (3.5-5.1); SODIUM LEVEL 145 MEQ/L (136-145)
[2018-06-24] MEDS: ACETAMINOPHEN TAB 650MG DOSE (2X325MG) PO ×2 (07:50→15:51)
[2018-06-24] MEDS: ALBUTEROL SULFATE 2.5 MG/0.5 ML INH NEB SOLN INH ×4 (07:56→20:00)
[2018-06-24] MEDS: NYSTATIN 500,000 U/5 ML SUSP UDC PO ×4 (08:36→20:23)
[2018-06-24] MEDS: ASPIRIN 325 MG TAB PO ×2 (08:36→20:21)
[2018-06-24] MEDS: DOCUSATE SODIUM 100 MG CAP PO ×2 (08:36→20:21)
[2018-06-24] MEDS: FAMOTIDINE 20 MG TAB PO (08:36)
[2018-06-24] MEDS: ENOXAPARIN 30 MG/0.3 ML SYR (J1650) SC (08:37)
[2018-06-24] MEDS: LIDOCAINE 5% (LIDODERM) PATCH TD (08:37)
[2018-06-24] MEDS: HYDROXYCHLOROQUINE 200 MG TAB PO (08:41)
[2018-06-24] MEDS: ADVAIR HFA 115/21MCG INHALER INH ×2 (09:00→22:02)
[2018-06-24] MEDS: SENNA 8.6 MG TAB (SENOKOT) PO (20:21)
[2018-06-24] MEDS: LATANOPROST 0.005% OPHTH SOLN 2.5 ML OU (20:23)
[2018-06-24] MEDS: **NOTE PATIENT COMMENT** MISC XX (21:00)
[2018-06-25] MEDS: PIPERACILLIN/TAZOBACTAM SOD 2.25 GM in D5W MINI-BAG PLUS 50 ML IV (03:23)
[2018-06-25] MEDS: ACETAMINOPHEN TAB 650MG DOSE (2X325MG) PO ×2 (04:26→19:45)
[2018-06-25] MEDS: SODIUM CHLORIDE 0.9% INJ 10 ML SYR IV ×2 (05:15→17:40)
[2018-06-25 05:25] LABS: HEMATOCRIT 35.9 % (36.0-47.0); HEMOGLOBIN 11.9 g/dl (12.0-15.5); MEAN CORPUSCULAR HEMOGLOBIN 29.9 pg (27.0-33.0); MEAN CORPUSCULAR HGB CONC 33.1 g/dl (32.0-36.5); MEAN CORPUSCULAR VOLUME 90.2 fl (80.0-96.0); PLATELET COUNT, AUTOMATED 313 10^3/uL (150-450); RED BLOOD COUNT 3.98 10^6/uL (4.00-5.40); RED CELL DISTRIBUTION WIDTH 14.7 % (11.5-14.5); WHITE BLOOD COUNT 9.1 10^3/uL (4.0-10.0)
[2018-06-25 05:41] LABS: ALBUMIN 2.5 GM/DL (3.2-5.2); ALBUMIN/GLOBULIN RATIO 0.78 (1.00-1.93); ALKALINE PHOSPHATASE 46 U/L (45-117); ALT/SGPT 33 U/L (12-78); ANION GAP 6 MEQ/L (8-16); AST/SGOT 31 U/L (7-37); BILIRUBIN,TOTAL 0.3 MG/DL (0.2-1.0); BLOOD UREA NITROGEN 24 MG/DL (7-18); CALCIUM LEVEL 8.8 MG/DL (8.8-10.2); CARBON DIOXIDE LEVEL 30 MEQ/L (21-32); CHLORIDE LEVEL 110 MEQ/L (98-107); CREATININE FOR GFR 0.81 MG/DL (0.55-1.30); GLOMERULAR FILTRATION RATE > 60.0 (>32); GLUCOSE, FASTING 94 MG/DL (70-100); POTASSIUM SERUM 3.5 MEQ/L (3.5-5.1); SODIUM LEVEL 146 MEQ/L (136-145); TOTAL PROTEIN 5.7 GM/DL (6.4-8.2)
[2018-06-25] MEDS: ALBUTEROL SULFATE 2.5 MG/0.5 ML INH NEB SOLN INH ×4 (08:00→20:00)
[2018-06-25] MEDS: ADVAIR HFA 115/21MCG INHALER INH ×2 (08:13→21:32)
[2018-06-25] MEDS: ASPIRIN 325 MG TAB PO ×2 (09:53→21:50)
[2018-06-25] MEDS: DOCUSATE SODIUM 100 MG CAP PO ×2 (09:53→21:50)
[2018-06-25] MEDS: FAMOTIDINE 20 MG TAB PO (09:53)
[2018-06-25] MEDS: NYSTATIN 500,000 U/5 ML SUSP UDC PO ×4 (09:54→21:48)
[2018-06-25] MEDS: ENOXAPARIN 30 MG/0.3 ML SYR (J1650) SC (09:54)
[2018-06-25] MEDS: LIDOCAINE 5% (LIDODERM) PATCH TD (09:54)
[2018-06-25] MEDS: HYDROXYCHLOROQUINE 200 MG TAB PO (09:58)
[2018-06-25] MEDS: traMADol 50 MG TAB PO ×2 (10:23→21:50)
[2018-06-25] MEDS: AUGMENTIN 500 MG TAB PO ×3 (12:25→21:48)
[2018-06-25] MEDS: **NOTE PATIENT COMMENT** MISC XX (19:45)
[2018-06-25] MEDS: SENNA 8.6 MG TAB (SENOKOT) PO (21:48)
[2018-06-25] MEDS: LATANOPROST 0.005% OPHTH SOLN 2.5 ML OU (21:50)
[2018-06-25] MEDS: DULoxetine 20 MG CAP (CYMBALTA) PO (21:50)
[2018-06-26] MEDS: SODIUM CHLORIDE 0.9% INJ 10 ML SYR IV ×2 (06:08→16:59)
[2018-06-26] MEDS: ACETAMINOPHEN TAB 650MG DOSE (2X325MG) PO ×2 (06:13→16:56)
[2018-06-26] MEDS: ONDANSETRON 4 MG TAB (S0181) PO ×2 (06:26→23:41)
[2018-06-26 06:56] LABS: ANION GAP 7 MEQ/L (8-16); BLOOD UREA NITROGEN 26 MG/DL (7-18); CALCIUM LEVEL 9.1 MG/DL (8.8-10.2); CARBON DIOXIDE LEVEL 28 MEQ/L (21-32); CHLORIDE LEVEL 113 MEQ/L (98-107); GLOMERULAR FILTRATION RATE > 60.0 (>32); GLUCOSE, FASTING 101 MG/DL (70-100); POTASSIUM SERUM 3.6 MEQ/L (3.5-5.1); SODIUM LEVEL 148 MEQ/L (136-145)
[2018-06-26] MEDS: ALBUTEROL SULFATE 2.5 MG/0.5 ML INH NEB SOLN INH ×4 (08:00→20:00)
[2018-06-26] MEDS: FAMOTIDINE 20 MG TAB PO (08:35)
[2018-06-26] MEDS: ASPIRIN 325 MG TAB PO ×2 (08:35→20:37)
[2018-06-26] MEDS: AUGMENTIN 500 MG TAB PO ×3 (08:35→20:37)
[2018-06-26] MEDS: LIDOCAINE 5% (LIDODERM) PATCH TD (08:36)
[2018-06-26] MEDS: ENOXAPARIN 30 MG/0.3 ML SYR (J1650) SC (08:36)
[2018-06-26] MEDS: NYSTATIN 500,000 U/5 ML SUSP UDC PO ×4 (08:36→20:37)
[2018-06-26] MEDS: DOCUSATE SODIUM 100 MG CAP PO ×2 (08:37→20:42)
[2018-06-26] MEDS: HYDROXYCHLOROQUINE 200 MG TAB PO (08:40)
[2018-06-26] MEDS: ADVAIR HFA 115/21MCG INHALER INH ×2 (11:56→21:01)
[2018-06-26] MEDS: LATANOPROST 0.005% OPHTH SOLN 2.5 ML OU (20:38)
[2018-06-26] MEDS: DULoxetine 20 MG CAP (CYMBALTA) PO (20:38)
[2018-06-26] MEDS: **NOTE PATIENT COMMENT** MISC XX (20:38)
[2018-06-26] MEDS: traMADol 50 MG TAB PO (20:41)
[2018-06-26] MEDS: SENNA 8.6 MG TAB (SENOKOT) PO (20:42)
[2018-06-27] MEDS: SODIUM CHLORIDE 0.9% INJ 10 ML SYR IV (05:27)
[2018-06-27 05:53] LABS: HEMATOCRIT 35.9 % (36.0-47.0); HEMOGLOBIN 11.8 g/dl (12.0-15.5); MEAN CORPUSCULAR HEMOGLOBIN 30.9 pg (27.0-33.0); MEAN CORPUSCULAR HGB CONC 32.9 g/dl (32.0-36.5); PLATELET COUNT, AUTOMATED 298 10^3/uL (150-450); RED BLOOD COUNT 3.82 10^6/uL (4.00-5.40); RED CELL DISTRIBUTION WIDTH 14.8 % (11.5-14.5)
[2018-06-27 06:14] LABS: ALBUMIN 2.5 GM/DL (3.2-5.2); ALBUMIN/GLOBULIN RATIO 0.76 (1.00-1.93); ALKALINE PHOSPHATASE 44 U/L (45-117); ALT/SGPT 47 U/L (12-78); ANION GAP 7 MEQ/L (8-16); AST/SGOT 34 U/L (7-37); BILIRUBIN,TOTAL 0.3 MG/DL (0.2-1.0); BLOOD UREA NITROGEN 21 MG/DL (7-18); CALCIUM LEVEL 8.6 MG/DL (8.8-10.2); CARBON DIOXIDE LEVEL 28 MEQ/L (21-32); CHLORIDE LEVEL 114 MEQ/L (98-107); GLOMERULAR FILTRATION RATE > 60.0 (>32); GLUCOSE, FASTING 88 MG/DL (70-100); POTASSIUM SERUM 3.7 MEQ/L (3.5-5.1); SODIUM LEVEL 149 MEQ/L (136-145); TOTAL PROTEIN 5.8 GM/DL (6.4-8.2)
[2018-06-27] MEDS: ALBUTEROL SULFATE 2.5 MG/0.5 ML INH NEB SOLN INH ×2 (08:00→11:38)
[2018-06-27] MEDS: FAMOTIDINE 20 MG TAB PO (08:16)
[2018-06-27] MEDS: ASPIRIN 325 MG TAB PO (08:16)
[2018-06-27] MEDS: NYSTATIN 500,000 U/5 ML SUSP UDC PO (08:16)
[2018-06-27] MEDS: AUGMENTIN 500 MG TAB PO (08:16)
[2018-06-27] MEDS: HYDROXYCHLOROQUINE 200 MG TAB PO (08:16)
[2018-06-27] MEDS: DOCUSATE SODIUM 100 MG CAP PO (08:16)
[2018-06-27] MEDS: LIDOCAINE 5% (LIDODERM) PATCH TD (08:16)
[2018-06-27] MEDS: ENOXAPARIN 30 MG/0.3 ML SYR (J1650) SC (08:17)
[2018-06-27] MEDS: ADVAIR HFA 115/21MCG INHALER INH (09:04)
== END 2018-06-27 14:00 | disposition home health service (06) | DRG 73 ==
LOC: M ED 10:49 → M ED INP 17:22 → M MSPAV 19:30
PROC: 3E0S3GC Introduction of Other Therapeutic Substance into Epidural Space, Percutaneous Approach (ICD-10-PCS; 2018-06-15)
PROC: 02HV33Z Insertion of Infusion Device into Superior Vena Cava, Percutaneous Approach (ICD-10-PCS; principal; 2018-06-18)
DX: B02.29 Other postherpetic nervous system involvement (principal); G93.41 Metabolic encephalopathy; J69.0 Pneumonitis due to inhalation of food and vomit; R44.3 Hallucinations, unspecified; N17.9 Acute kidney failure, unspecified; B37.0 Candidal stomatitis; I10 Essential (primary) hypertension; E78.5 Hyperlipidemia, unspecified; K21.9 Gastro-esophageal reflux disease without esophagitis; M06.9 Rheumatoid arthritis, unspecified; E86.0 Dehydration; K59.00 Constipation, unspecified; Z79.899 Other long term (current) drug therapy; J44.9 Chronic obstructive pulmonary disease, unspecified; F17.200 Nicotine dependence, unspecified, uncomplicated

== ENCOUNTER → 2018-07-04 | Outpatient (REF) | payer MEDICARE ==
[2018-07-04 12:46] LABS: BASO # 0.1 10^3/uL (0.0-0.2); BASO % 0.7 % (0.0-1.0); EOS # 0.3 10^3/uL (0.0-0.50); EOS % 3.5 % (0.0-3.0); HEMATOCRIT 40.7 % (36.0-47.0); HEMOGLOBIN 13.5 g/dl (12.0-15.5); IMMATURE GRANULOCYTE % 0.4 % (0-3.0); LYMPH # 2.3 10^3/uL (1.5-4.5); LYMPH % 23.1 % (24.0-44.0); MEAN CORPUSCULAR HEMOGLOBIN 30.6 pg (27.0-33.0); MEAN CORPUSCULAR HGB CONC 33.2 g/dl (32.0-36.5); MEAN CORPUSCULAR VOLUME 92.3 fl (80.0-96.0); MONO # 0.9 10^3/uL (0.0-0.8); MONO % 9.6 % (0.0-5.0); NEUTROPHILS # 6.1 10^3/uL (1.8-7.7); NEUTROPHILS % 62.7 % (36.0-66.0); PLATELET COUNT, AUTOMATED 287 10^3/uL (150-450); RED BLOOD COUNT 4.41 10^6/uL (4.00-5.40); RED CELL DISTRIBUTION WIDTH 15.1 % (11.5-14.5); WHITE BLOOD COUNT 9.8 10^3/uL (4.0-10.0)
[2018-07-04 13:35] LABS: ANION GAP 10 MEQ/L (8-16); BLOOD UREA NITROGEN 23 MG/DL (7-18); CALCIUM LEVEL 10.3 MG/DL (8.8-10.2); CARBON DIOXIDE LEVEL 30 MEQ/L (21-32); CHLORIDE LEVEL 105 MEQ/L (98-107); CREATININE FOR GFR 0.65 MG/DL (0.55-1.30); GLOMERULAR FILTRATION RATE > 60.0 (>32); GLUCOSE, FASTING 102 MG/DL (70-100); POTASSIUM SERUM 3.8 MEQ/L (3.5-5.1); SODIUM LEVEL 145 MEQ/L (136-145)
== END ==
LOC: M SFHCADAM 10:58
DX: B02.9 Zoster without complications (principal); I11.9 Hypertensive heart disease without heart failure
CPT/HCPCS: 80048

== ENCOUNTER → 2018-08-21 | Outpatient (REF) | payer MEDICARE ==
[2018-08-21 13:19] LABS: HEMATOCRIT 38.5 % (36.0-47.0); HEMOGLOBIN 12.3 g/dl (12.0-15.5); MEAN CORPUSCULAR HEMOGLOBIN 30.2 pg (27.0-33.0); MEAN CORPUSCULAR HGB CONC 31.9 g/dl (32.0-36.5); MEAN CORPUSCULAR VOLUME 94.6 fl (80.0-96.0); PLATELET COUNT, AUTOMATED 244 10^3/uL (150-450); RED BLOOD COUNT 4.07 10^6/uL (4.00-5.40); RED CELL DISTRIBUTION WIDTH 14.8 % (11.5-14.5); WHITE BLOOD COUNT 7.7 10^3/uL (4.0-10.0)
[2018-08-21 20:14] LABS: ALBUMIN/GLOBULIN RATIO 0.97 (1.00-1.93); ALKALINE PHOSPHATASE 44 U/L (45-117); ALT/SGPT 19 U/L (12-78); ANION GAP 9 MEQ/L (8-16); AST/SGOT 22 U/L (7-37); BILIRUBIN,TOTAL 0.3 MG/DL (0.2-1.0); BLOOD UREA NITROGEN 19 MG/DL (7-18); CALCIUM LEVEL 9.3 MG/DL (8.8-10.2); CARBON DIOXIDE LEVEL 28 MEQ/L (21-32); CHLORIDE LEVEL 107 MEQ/L (98-107); GLOMERULAR FILTRATION RATE > 60.0 (>32); GLUCOSE, FASTING 74 MG/DL (70-100); POTASSIUM SERUM 4.4 MEQ/L (3.5-5.1); SODIUM LEVEL 144 MEQ/L (136-145); TOTAL PROTEIN 6.1 GM/DL (6.4-8.2)
[2018-08-21 20:55] LABS: CHOLESTEROL LEVEL 157 MG/DL (<200); CHOLESTEROL RISK RATIO 3.568 (<5); HDL CHOLESTEROL 44 MG/DL (>40); LDL CHOLESTEROL 76 MG/DL (<100); NON-HDL-C 113 MG/DL; TRIGLYCERIDES LEVEL 186 MG/DL (<150)
== END ==
LOC: M SFHCADAM 09:57
DX: E78.5 Hyperlipidemia, unspecified (principal)
CPT/HCPCS: 80053

== ENCOUNTER 2018-09-04 13:58 | Outpatient (CLI) | payer MEDICARE ==
[2018-09-04] MEDS: ZOLEDRONIC ACID 5 MG in APPROPRIATE DILUENT 1 EA IV (14:00)
== END 2018-09-04 15:00 | disposition home or self-care (01) ==
LOC: M INFU 13:58
DX: M81.0 Age-related osteoporosis without current pathological fracture (principal)
CPT/HCPCS: J3489

== ENCOUNTER → 2018-09-27 | Outpatient (REF) | payer MEDICARE | LOC: M SFHCADAM 11:05 | DX: E78.5 Hyperlipidemia, unspecified (principal); Z53.8 Procedure and treatment not carried out for other reasons ==

== ENCOUNTER 2018-10-27 14:11 | Observation (INO) | payer MEDICARE ==
[~2018-10-27] VITALS: Ht 157.5 cm; Wt 51.3 kg
[~2018-10-27 14:11] MED LIST changes: -AMLO10TA2 PO; +AMLO10TA4 PO; +AMOX500T2 PO; +ASPI81CH PO; +COLA100C5 PO; +CYMB1CAP4 PO; +FAMO20TA PO; +FOLI1TAB5 PO; +HYDR200T3 PO; +LATA5OPD OU; +LIDO5TD TD; +METH2.5T48 PO; +NORCOTAB PO; +NYST50SS PO; +OMEP40CA2 PO; +ONDA4TAB5 PO; +PRED5TA PO; +SENN18TA PO; +VALT1TAB PO
--- NOTE | 2018-10-27 15:00 | REP ---
Clinical: Altered mental status. Comparison: None . Findings: Age-related atrophy with periventricular leukomalacia and microvascular ischemic changes are appreciated. The ventricles and sulci are symmetric. Peterson-white differentiation is maintained. There is no evidence for acute intracranial hemorrhage, mass/mass effect, pathology or infarction. No extra-axial fluid collection. Calvarium is intact. Paranasal sinuses and mastoid air cells are clear. Impression: Atrophy and microvascular ischemic changes. No acute intracranial hemorrhage, infarction, or mass/mass effect. Electronically Signed by Jamil De Oliveira MD 10/27/2018 02:50 P
[2018-10-27 15:25] LABS: BASO # 0.1 10^3/uL (0.0-0.2); BASO % 0.8 % (0.0-1.0); EOS # 0.6 10^3/uL (0.0-0.50); EOS % 7.2 % (0.0-3.0); HEMATOCRIT 37.5 % (36.0-47.0); HEMOGLOBIN 12.1 g/dl (12.0-15.5); LYMPH # 1.7 10^3/uL (1.5-4.5); LYMPH % 21.9 % (24.0-44.0); MEAN CORPUSCULAR HEMOGLOBIN 30.7 pg (27.0-33.0); MEAN CORPUSCULAR HGB CONC 32.3 g/dl (32.0-36.5); MEAN CORPUSCULAR VOLUME 95.2 fl (80.0-96.0); NEUTROPHILS # 4.5 10^3/uL (1.8-7.7); NEUTROPHILS % 56.8 % (36.0-66.0); PLATELET COUNT, AUTOMATED 234 10^3/uL (150-450); RED BLOOD COUNT 3.94 10^6/uL (4.00-5.40); WHITE BLOOD COUNT 7.8 10^3/uL (4.0-10.0)
[2018-10-27 15:25] LABS: VENOUS BASE EXCESS 5.3 (-2.0-2.0); VENOUS HCO3 32.4 MEQ/L (23.0-27.0); VENOUS O2 SATURATION 67.2 % (60.0-80.0); VENOUS PARTIAL PRESSURE CO2 59.3 mmHg (38.0-50.0); VENOUS PARTIAL PRESSURE O2 37.3 mmHg (30.0-50.0); VENOUS PH 7.356 UNITS (7.330-7.430); VENOUS STANDARD HCO3 28.5 MEQ/L; VENOUS TOTAL CO2 34.3 MEQ/L (24.0-28.0)
[2018-10-27] MEDS ORDERED: FISH1000 PO (15:46)
[2018-10-27] MEDS ORDERED: XALA0.007 OU (15:46)
[2018-10-27] MEDS ORDERED: TRAM50TA2 PO (15:46)
[2018-10-27] MEDS ORDERED: MIRA3350 PO (15:46)
[2018-10-27] MEDS ORDERED: DULO1CAP PO (15:47)
[2018-10-27] MEDS ORDERED: ACET500T15 PO (15:51)
[2018-10-27 15:53] LABS: ACETAMINOPHEN LEVEL 2.4 UG/ML (10.0-30.0); ALT/SGPT 17 U/L (12-78); BILIRUBIN,DIRECT 0.1 MG/DL (0.0-0.2); BILIRUBIN,TOTAL 0.3 MG/DL (0.2-1.0); BLOOD UREA NITROGEN 18 MG/DL (7-18); CALCIUM LEVEL 9.3 MG/DL (8.8-10.2); CARBON DIOXIDE LEVEL 32 MEQ/L (21-32); CHLORIDE LEVEL 107 MEQ/L (98-107); CPK CREATINE PHOSPHOKINASE 122 U/L (26-192); CREATININE FOR GFR 0.65 MG/DL (0.55-1.30); ETHYL ALCOHOL (ETHANOL) < 0.003 % (0.000-0.010); GLOMERULAR FILTRATION RATE > 60.0 (>32); GLUCOSE, FASTING 93 MG/DL (70-100); MB/CK RELATIVE INDEX 1.48 (< OR =4); POTASSIUM SERUM 3.6 MEQ/L (3.5-5.1); SODIUM LEVEL 144 MEQ/L (136-145); TOTAL PROTEIN 6.1 GM/DL (6.4-8.2); TROPONIN I < 0.02 NG/ML (< 0.10)
[2018-10-27 17:12] LABS: OSMOLALITY SERUM 300 MOSM/KG (280-301)
--- NOTE | 2018-10-27 17:31 | ECGEPIP ---
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
--- NOTE | 2018-10-27 17:37 | REP ---
Clinical: altered mental status. Comparison: 06/18/2018. Findings: The mediastinum and cardiac silhouette are stable and within normal limits for portable technique. The lung paz are clear without acute consolidation, effusion, or pneumothorax. Skeletal structures are intact. Impression: No acute cardiopulmonary process appreciated. Electronically Signed by Jamil De Oliveira MD 10/27/2018 05:29 P
[2018-10-27 18:12] LABS: AMPHETAMINES LEVEL URINE NEGATIVE (NEGATIVE); BARBITURATES URINE NEGATIVE (NEGATIVE); BENZODIAZEPINES URINE NEGATIVE (NEGATIVE); CANNABINOIDS URINE NEGATIVE (NEGATIVE); COCAINE METABOLITE URINE NEGATIVE (NEGATIVE); METHADONE URINE NEGATIVE (NEGATIVE); OPIATES URINE NEGATIVE (NEGATIVE); PHENCYCLIDINE URINE NEGATIVE (NEGATIVE)
[2018-10-27 18:25] LABS: ABG HCO3 29.8 MEQ/L (22.0-26.0); ABG PARTIAL PRESSURE CO2 44.4 mmHg (35.0-45.0); ABG PARTIAL PRESSURE O2 53.1 mmHg (75.0-100.0); ABG STANDARD HCO3 28.8 MEQ/L (22.0-26.0); ABG TOTAL CO2 31.1 MEQ/L (23.0-31.0); ABG pH (ARTERIAL) 7.444 UNITS (7.350-7.450)
[2018-10-27] MEDS ORDERED: ASPIRIN 325 MG TAB PO SCH (21:00)
[2018-10-27 21:40] VITALS: BP 158/86
[2018-10-27] MEDS: DOCUSATE SODIUM 100 MG CAP PO SCH (22:17)
[2018-10-27] MEDS: VITAMIN D 1,000 INTERNATIONAL UNITS TABLET PO SCH (22:17)
[2018-10-27] MEDS: SENNA 8.6 MG TAB (SENOKOT) PO SCH (22:17)
[2018-10-27] MEDS: ACETAMINOPHEN 500 MG TAB PO SCH (22:17)
[2018-10-27] MEDS: OMEGA-3 1000MG CAPSULE PO SCH (23:23)
[2018-10-27] MEDS: LATANOPROST 0.005% OPHTH SOLN 2.5 ML OU SCH (23:23)
[2018-10-27] MEDS: HYDROXYCHLOROQUINE 200 MG TAB PO SCH (23:23)
[2018-10-27] MEDS: DULoxetine 20 MG CAP (CYMBALTA) PO SCH (23:24)
[2018-10-28] MEDS: ADVAIR HFA 115/21MCG INHALER INH SCH ×3 (02:14→19:50)
[2018-10-28 05:49] LABS: BASO # 0.1 10^3/uL (0.0-0.2); BASO % 0.8 % (0.0-1.0); EOS # 0.5 10^3/uL (0.0-0.50); EOS % 6.6 % (0.0-3.0); HEMATOCRIT 39.6 % (36.0-47.0); HEMOGLOBIN 12.9 g/dl (12.0-15.5); LYMPH # 1.6 10^3/uL (1.5-4.5); LYMPH % 20.7 % (24.0-44.0); MEAN CORPUSCULAR HEMOGLOBIN 30.3 pg (27.0-33.0); MEAN CORPUSCULAR HGB CONC 32.6 g/dl (32.0-36.5); MONO # 0.9 10^3/uL (0.0-0.8); MONO % 11.9 % (0.0-5.0); NEUTROPHILS # 4.7 10^3/uL (1.8-7.7); NEUTROPHILS % 59.6 % (36.0-66.0); PLATELET COUNT, AUTOMATED 233 10^3/uL (150-450); RED BLOOD COUNT 4.26 10^6/uL (4.00-5.40); WHITE BLOOD COUNT 7.9 10^3/uL (4.0-10.0)
[2018-10-28 06:00] VITALS: BP 132/88
[2018-10-28 06:15] LABS: BLOOD UREA NITROGEN 10 MG/DL (7-18); CALCIUM LEVEL 9.3 MG/DL (8.8-10.2); CARBON DIOXIDE LEVEL 30 MEQ/L (21-32); CHLORIDE LEVEL 107 MEQ/L (98-107); CREATININE FOR GFR 0.49 MG/DL (0.55-1.30); GLOMERULAR FILTRATION RATE > 60.0 (>32); GLUCOSE, FASTING 91 MG/DL (70-100); POTASSIUM SERUM 3.1 MEQ/L (3.5-5.1); SODIUM LEVEL 142 MEQ/L (136-145)
[2018-10-28] MEDS ORDERED: MIRALAX *UNIT DOSE* 17GM PACKET PO SCH (09:00)
--- NOTE | 2018-10-28 09:59 | HPE ---
DATE OF ADMISSION: 10/27/2018 83-year-old female with past medical history of hypertension, hyperlipidemia, rheumatoid arthritis who presents to the emergency room on the request of the family who concerns were that she is not acting herself over the last couple of weeks, that she for example has been saying that she is looking for a family member who is and also has been decreasing in her overall activities of daily living as far as cognition is concerned. When I spoke to her she is awake, alert, and oriented times two, very pleasant. She has had no new medication changes. In the emergency room (ER) she had a CAT scan of the head done which was negative. Her daughter also expressed that she has been getting a bit weaker despite the fact that she is getting home physical therapy (PT) so she will be admitted for further management. PAST MEDICAL HISTORY: Again past medical history of hypertension, hyperlipidemia, rheumatoid arthritis. PAST SURGICAL HISTORY: Hysterectomy, appendectomy, tonsillectomy, and . ALLERGIES: ACYCLOVIR. FAMILY HISTORY: Noncontributory. SOCIAL HISTORY: Patient smokes a pack a day for many years. Denies alcohol or illicit drugs. MEDICATIONS AT HOME: - Tylenol 500 mg orally three times a day - aspirin 325 mg orally twice daily - calcium 600 mg orally daily - vitamin D 1000 units orally at bedtime - Colace 100 mg orally twice daily - duloxetine 20 mg orally twice daily - famotidine 20 mg daily - fish oil 1000 mg orally at bedtime - hydroxychloroquine 200 mg orally twice a day - latanoprost one drop both eyes at bedtime - multivitamin one tablet orally daily - salmeterol/fluticasone 250/50 one puff inhaled twice daily - senna two tablets orally at bedtime - tramadol 50 mg orally at bedtime REVIEW OF SYSTEMS: Negative of all ten major systems except what was mentioned in the history of present illness. PHYSICAL EXAMINATION: VITALS: Blood pressure 163/85, heart rate is 86 and regular, respiratory rate 20, temperature 96.6, oxygen saturation 92% on room air. HEAD: Atraumatic, normocephalic. NECK: Supple. No jugular venous distention (JVD). LUNGS: Clear to auscultation. S1, S2, audible. No murmurs appreciated. ABDOMEN: Soft, positive bowel sounds. EXTREMITIES: No pedal edema. SKIN: Intact. NEUROLOGIC EXAMINATION: Patient awake, alert times three. LABS: WBC 7.8, hemoglobin 12.1, hematocrit is 37.5, platelets are 234,000, sodium 144, potassium 3.6, chloride 107, CO2 32, anion gap 5, BUN 18, creatinine 0.65, glucose is 93, lactic acid is 1.3, troponin is less than 0.02, TSH is 2.59. Arterial blood gas shows a blood pH of 7.44 and a pCO2 of 44.4. Urinalysis is negative for urinary tract infection (UTI). IMPRESSION: 1. Altered mental status. PLAN: Patient is to be admitted to the medical/surgical floor. I believe all the testing has been done and it is a matter of the family speaking to each other and I spoke with the daughter, they may have to healthcare social worker for high level of care. I feel this patient likely has mild to moderate dementia though she does have a very strong family unit and she does live with her daughter who is a nurse. I will hold the Ultram for now because that can exacerbate her dementia and we will continue her other preadmission medications and also order physical therapy (PT) evaluation to assess her worsening weakness and see if she would benefit form subacute rehabilitation.
[2018-10-28] MEDS: ASPIRIN 325 MG TAB PO SCH (10:53)
[2018-10-28] MEDS: HYDROXYCHLOROQUINE 200 MG TAB PO SCH ×2 (10:54→20:27)
[2018-10-28] MEDS: NICOTINE 14 MG/24 HR TRANSDERMAL TD SCH (10:54)
[2018-10-28] MEDS: MULTIVITAMINS/MINERALS THERAP 1 TAB PO SCH (10:54)
[2018-10-28] MEDS: FAMOTIDINE 20 MG TAB PO SCH (10:54)
[2018-10-28] MEDS: DOCUSATE SODIUM 100 MG CAP PO SCH ×2 (10:54→20:28)
[2018-10-28] MEDS: DULoxetine 20 MG CAP (CYMBALTA) PO SCH ×2 (10:55→20:27)
[2018-10-28] MEDS: ACETAMINOPHEN 500 MG TAB PO SCH ×3 (10:55→20:27)
--- NOTE | 2018-10-28 11:26 | IPN ---
DATE: 10/28/2018 [facility], admitted with altered mental status. She has had some increasing dementia symptoms over the past year. Family is starting to recognize these. Daughter told me that she leaves cigarettes around the house that she forgets she has lit. Patient denies any memory issues. Urinalysis looks clean on admission, I do not think this is a urinary tract infection (UTI). PHYSICAL EXAMINATION: Blood pressure 132/88, vital signs stable. She is alert and conversant, she knows her location, she thinks it is October of 2018, which is very close, she knows who the president is, has congruent opinions. HEENT: Showed no facial droop or weakness. LUNGS: Clear. HEART: Regular rate and rhythm with 2/6 systolic ejection murmur. ABDOMEN: Soft, nontender. No peripheral edema. Moves arms, equal strength. CBC, CMP, urinalysis all looks unremarkable, potassium is 3.1. IMPRESSION: 1. Altered mental status. Probably exacerbation of underlying dementia/toxic metabolic encephalopathy I suspect related to tramadol. Tramadol has been discontinued. Her mental status does seem to be clearing. I have ordered an MRI, B12, folate, TSH, RPR, and MRI of the brain. 2. History of chronic obstructive pulmonary disease (COPD). She still smokes. She was leaving lit cigarettes around. Importance of smoking cessation discussed. Nicotine patch ordered. 3. Aortic stenosis. She has had echocardiograms done, most recent 08/2018. Has mild to moderate aortic stenosis, mean gradient of 19. 4. Rheumatoid arthritis, on Plaquenil. Previously on methotrexate and prednisone. Follows with [facility]. 5. Hypertension. Blood pressure is well controlled. She is not on any regular medication as an outpatient. 6. Osteoporosis. Treated with Reclast annually, most recently 07/2018. 7. Recent herpes zoster. She has really started to decline since that episode. She has not returned back to her baseline. It might have unmasked some underlying dementia. I expect that she will be stable for discharge tomorrow.
--- NOTE | 2018-10-28 12:42 | REP ---
Clinical: Dementia Technique: Standard noncontrast MRI of the brain sequencing. Findings: Extensive atrophy and microvascular ischemic changes including periventricular leukomalacia and scattered small lacunar infarcts as evidenced by increased signal intensity foci on T2-weighted sequences in the periventricular and scattered white matter distribution. No evidence for acute intracranial hemorrhage, mass/mass effect, or infarction. No extra-axial collection. Ventricles are symmetric and normal. Orbits are unremarkable. Sinuses are within normal limits. Impression: Atrophy and microvascular ischemic changes. No evidence for acute intracranial process. No obvious acute infarction. Electronically Signed by Jamil De Oliveira MD 10/28/2018 12:33 P
[2018-10-28 14:00] VITALS: BP 134/79
[2018-10-28] MEDS: OMEGA-3 1000MG CAPSULE PO SCH (20:27)
[2018-10-28] MEDS: LATANOPROST 0.005% OPHTH SOLN 2.5 ML OU SCH (20:28)
[2018-10-28] MEDS: VITAMIN D 1,000 INTERNATIONAL UNITS TABLET PO SCH (20:28)
[2018-10-28] MEDS: SENNA 8.6 MG TAB (SENOKOT) PO SCH (20:29)
[2018-10-28 22:00] VITALS: BP 134/70
[2018-10-29 05:45] LABS: HEMATOCRIT 38.8 % (36.0-47.0); MEAN CORPUSCULAR HEMOGLOBIN 30.4 pg (27.0-33.0); MEAN CORPUSCULAR HGB CONC 33.5 g/dl (32.0-36.5); MEAN CORPUSCULAR VOLUME 90.7 fl (80.0-96.0); PLATELET COUNT, AUTOMATED 261 10^3/uL (150-450); RED BLOOD COUNT 4.28 10^6/uL (4.00-5.40); WHITE BLOOD COUNT 10.4 10^3/uL (4.0-10.0)
[2018-10-29 06:00] VITALS: BP 154/68
[2018-10-29 06:13] LABS: BLOOD UREA NITROGEN 10 MG/DL (7-18); CALCIUM LEVEL 9.2 MG/DL (8.8-10.2); CARBON DIOXIDE LEVEL 29 MEQ/L (21-32); CHLORIDE LEVEL 108 MEQ/L (98-107); CREATININE FOR GFR 0.54 MG/DL (0.55-1.30); GLOMERULAR FILTRATION RATE > 60.0 (>32); GLUCOSE, FASTING 103 MG/DL (70-100); POTASSIUM SERUM 3.1 MEQ/L (3.5-5.1); SODIUM LEVEL 143 MEQ/L (136-145)
[2018-10-29] MEDS: ADVAIR HFA 115/21MCG INHALER INH SCH (07:52)
--- NOTE | 2018-10-29 08:33 | IPNPDOC ---
Subjective Date Seen The patient was seen on 10/29/18. Subjective Chief Complaint/HPI AMS Events since last encounter Feeling well denies c/o. Constitutional: Reports: Weakness (generalized); Denies: Chills, Fever, Night Sweats Pulmonary: Denies: Dyspnea, Cough Cardiovascular: Denies: Chest Pain, Palpitations, Orthopnea, Paroxysmal Noc. Dyspnea, Lt Headedness Gastrointestinal: Denies: Nausea, Vomiting, Abdominal Pain, Diarrhea, Constipation Objective Physical Examination General Exam: Positive: Alert, Cooperative, No Acute Distress Chest Exam: Positive: Clear to auscultation, Normal air movement Heart Exam: Positive: Rate Normal, Regular Rhythm, Normal S1, Normal S2; Negative: Murmurs, Rubs Abdomen Exam: Positive: Normal bowel sounds, Soft; Negative: Tenderness, Hepatospenomegaly Extremity Exam: Positive: Normal pulses; Negative: Clubbing, Cyanosis, Edema Neuro Exam: Positive: Normal Speech Psych Exam: Positive: Oriented x 3 (alert to self, [facility], 2018) Assessment /Plan Assessment CDT -- Patient was cleared for DC home by PT. Reported that she was feeling well. Daughters were at bedside and eager to bring her home, so patient DCed this afternoon. Problems (1) Altered mental status, unspecified Status: Acute Response to Treatment: Improving Problem Text: Tramadol held. mentation appears to be improving. needs some PT for debility. (2) Physical deconditioning Status: Acute Problem Text: not at baseline per PT eval. Will see how eval goes today, consider DC pending PT recommendations. (3) COPD (chronic obstructive pulmonary disease) Status: Chronic Plan/VTE VTE Prophylaxis Ordered?: Yes VS, I&O, 24H, [facility] Vital Signs/I&O Vital Signs Date Time Temp Pulse Resp B/P (MAP) Pulse Ox O2 Delivery O2 Flow Rate FiO2 10/29/18 06:00 97.2 78 17 154/68 (96) 93 Room Air I&O- Last 24 Hours up to 6 AM 10/29/18 06:00 Intake Total 440 ml Output Total 0 ml Balance 440 ml Laboratory Data 24H LABS Laboratory Tests 2 10/29/18 05:17: Nucleated Red Blood Cells % (auto) 0.0, Anion Gap 6L, Glomerular Filtration Rate > 60.0, Blood Urea Nitrogen 10, Creatinine 0.54L, Sodium Level 143, Potassium Level 3.1L, Chloride Level 108H, Carbon Dioxide Level 29, Calcium Level 9.2 CBC/BMP Laboratory Tests 10/29/18 05:17 Red Blood Count 4.28, Mean Corpuscular Volume 90.7, Mean Corpuscular Hemoglobin 30.4, Mean Corpuscular Hemoglobin Concent 33.5, Red Cell Distribution Width 12.9, Calcium Level 9.2 Microbiology Microbiology 10/27/18 Blood Culture - Preliminary, Resulted No growth after 24 hours . All specim... 10/27/18 Blood Culture - Preliminary, Resulted No growth after 24 hours . All specim... 10/27/18 Respiratory Virus Panel (PCR) ([facility]) - Final, Complete Tamiko Tran [facility] Oct 29, 2018 08:33 JORGE HAYES DO Oct 29, 2018 17:47
[2018-10-29] MEDS ORDERED: POTASSIUM CHLORIDE 10 MEQ SR TABLET PO ONE (09:00)
[2018-10-29] MEDS: MULTIVITAMINS/MINERALS THERAP 1 TAB PO SCH (10:35)
[2018-10-29] MEDS: HYDROXYCHLOROQUINE 200 MG TAB PO SCH (10:35)
[2018-10-29] MEDS: FAMOTIDINE 20 MG TAB PO SCH (10:35)
[2018-10-29] MEDS: DULoxetine 20 MG CAP (CYMBALTA) PO SCH (10:35)
[2018-10-29] MEDS: ACETAMINOPHEN 500 MG TAB PO SCH (10:36)
[2018-10-29] MEDS: ASPIRIN 325 MG TAB PO SCH (10:36)
[2018-10-29] MEDS: DOCUSATE SODIUM 100 MG CAP PO SCH (10:36)
[2018-10-29] MEDS: NICOTINE 14 MG/24 HR TRANSDERMAL TD SCH (10:37)
[2018-10-29 12:01] LABS: VITAMIN B12 LEVEL 472 PG/ML (247-911)
[2018-10-29 12:06] LABS: FOLATE 7.3 NG/ML (>5.4)
[2018-10-29 14:00] VITALS: BP 160/77
[2018-10-29] MEDS ORDERED: NICO14PA TD (15:44)
--- NOTE | 2018-10-30 05:30 | DS.PDOC ---
Discharge Summary General Date of Admission Oct 27, 2018 at 19:27 Date of Discharge 10/29/18 Primary Care Physician: Alcides Jernigan MD Attending Physician: JORGE HAYES DO Discharge Summary Consults: None Discharge diagnosis: Altered Mental Status/Toxic Metabolic Encephalopathy likely from exacerbation of Underlying Dementia Multifactorial: secondary to Tramadol and possibly flare of Herpes Zoster infection in the recent past Generalized Weakness (ruled out CVA) Secondary diagnosis: Recent Herpes Zoster History of COPD Aortic Stenosis Rheumatoid Arthritis Hypertension Osteoporosis Hospital course: 83 yo F presented to [facility] ED on 10/27/18 for family member concerns that patient was not acting herself and had a decline in her cognition for a couple of days days prior to presentation. Daughter was also concerned that patient had been getting weaker despite working with physical therapy at home. It was found that patient had no new medication changes. A CT scan of the head was unremarkable for CVA. UA was also negative and clean on admission. Patient was admitted to the Med/Surg floor for altered mental status. Dr. Jernigan stated in his progress note that patient has had some increasing dementia symptoms over the past year and family members were starting to recognize these. Of note, Dr. Jernigan noted that patient had a recent episode of herpes zoster infection. Since then, he has noted that patient has really started having a decline in her cognition and has not returned back to her baseline. His speculation is that patient may have unmasked some underlying dementia from the herpes zoster flare. Also, it was thought that patient's tramadol could have been causing patient to have some confusion as well and causing toxic metabolic encephalopathy. Her tramadol was discontinued during this admission. An MRI of the brain was unremarkable as well. Vitamin B12, folate, and TSH labs were all WNL. In addition, RPR syphilis serology was found to be nonreactive. Since admission, patient's cognition and mental status has definitely improved and she will be discharged home today in medically and hemodynamically stable condition. However, physical therapy has assessed that she needs to go home with services likely for more physical therapy for physical strengthening and mobility. She will be sent home with a discontinuation of her tramadol as well. Progress note on date of discharge: Please see Ivanna Tran's Progress Note on the Date of Discharge: 10/29/18. Agree with her physical exam. Concur with her plan. Labs: Please see below Assessment: Altered Mental Status/Toxic Metabolic Encephalopathy likely from exacerbation of Underlying Dementia Multifactorial: secondary to Tramadol and possibly flare of Herpes Zoster infection in the recent past Generalized Weakness (ruled out CVA) Disposition: Home with Services (Physical Therapy Evaluation Assessment stated she needed Services probably for Physical Therapy for strengthening/mobility) Follow-up: With PCP Dr. Alcides Jernigan within 1-2 weeks. Activity: As tolerated and prior to hospitalization. Will be going home with services that will be provided for physical therapy. Diet: Regular Medications on discharge: Please see below. Stopped tramadol due to likely etiology of exacerbating underlying dementia. Cc: Dr. Alcides Jernigan Time spent on discharge: Greater than 35 minutes. Vital Signs/I&Os Vital Signs Date Time Temp Pulse Resp B/P (MAP) Pulse Ox O2 Delivery O2 Flow Rate FiO2 10/29/18 14:00 98.4 90 18 160/77 (104) 95 Room Air I&O- Last 24 Hours up to 6 AM 10/29/18 06:00 Intake Total 440 ml Output Total 0 ml Balance 440 ml Laboratory Data Labs 24H Laboratory Tests 2 10/29/18 05:17: Nucleated Red Blood Cells % (auto) 0.0, Anion Gap 6L, Glomerular Filtration Rate > 60.0, Blood Urea Nitrogen 10, Creatinine 0.54L, Sodium Level 143, Potassium Level 3.1L, Chloride Level 108H, Carbon Dioxide Level 29, Calcium Level 9.2, Vitamin B12 Level 472, Folate 7.3, Syphilis Serology NONREACTIVE CBC/BMP Laboratory Tests 10/29/18 05:17 Red Blood Count 4.28, Mean Corpuscular Volume 90.7, Mean Corpuscular Hemoglobin 30.4, Mean Corpuscular Hemoglobin Concent 33.5, Red Cell Distribution Width 12.9, Calcium Level 9.2 Microbiology Microbiology 10/27/18 Blood Culture - Preliminary, Resulted No Growth after 48 hours. All Specime... 10/27/18 Blood Culture - Preliminary, Resulted No Growth after 48 hours. All Specime... 10/27/18 Respiratory Virus Panel (PCR) ([facility]) - Final, Complete Discharge Medications Scheduled Acetaminophen (Acetaminophen) 500 Mg Tab, 500 MG PO TID, (Reported) Aspirin (Aspirin) 325 Mg Tab, 325 MG PO BID, (Reported) Calcium (Calcium) 600 Mg Tab, 600 MG PO DAILY, (Reported) Cholecalciferol (Vitamin D) 1,000 Unit Tab, 1,000 UNIT PO QHS, (Reported) Docusate Sodium (Colace) 100 Mg Cap, 100 MG PO BID Duloxetine Hcl (Duloxetine HCl) 20 Mg Cap, 20 MG PO BID, (Reported) Famotidine (Pepcid) 20 Mg Tab, 20 MG PO DAILY Fish Oil (Fish Oil) 1,000 Mg Cap, 1,000 MG PO QHS, (Reported) Hydroxychloroquine Sulfate (Hydroxychloroquine Sulfat) 200 Mg Tab, 200 MG PO BID, (Reported) Latanoprost (Xalatan) 0.005 % Zoe, 1 DROP OU QHS, (Reported) Multivitamins *[facility] STOCKED* (Thera M Plus *[facility] STOCKED*) 1 Tab Tab, 1 TAB PO DAILY, (Reported) Nicotine (Nicotine Transdermal Syst) 14 Mg/24 Hr Dis, 1 PATCH TD DAILY Polyethylene Glycol (Miralax) 1 Pow Pow, 17 GM PO Q3RD, (Reported) Salmeterol/Fluticasone (Advair Diskus 250-50 Mcg/Dose) 14 Puff/Inhaler Aerp, 1 PUFF INH BID, (Reported) Senna (Senna-Lax) 8.6 Mg Tab, 2 TAB PO QHS Allergies Coded Allergies: Acyclovir (Verified Adverse Reaction, Unknown, 10/27/18) KIDNEY FUNCTION GME ATTESTATION GME ATTESTATION My faculty preceptor for this patient encounter was Dr. Jorge Schroeder, and was physically present during the encounter and was fully available. All aspects of the patient interview, examination, medical decision making process, and medical care plan development were reviewed and approved by the faculty preceptor. The faculty preceptor is aware and concurs with the plan as stated in the body of this note and will attest to such by his/her cosignature. EMILY CEDEÑO DO Oct 29, 2018 15:46
== END 2018-10-29 17:00 | disposition home health service (06) ==
LOC: M ED 14:11 → M ED INP 19:27 → M MSPAV 21:40
PROVIDERS: ADMIT Internal Medicine; ATTEND Family Medicine
DX: R41.82 Altered mental status, unspecified (principal); G92 Toxic encephalopathy; F03.90 Unspecified dementia, unspecified severity, without behavioral disturbance, psychotic disturbance, mood disturbance, and anxiety; M62.81 Muscle weakness (generalized); B02.9 Zoster without complications; J44.9 Chronic obstructive pulmonary disease, unspecified; I35.0 Nonrheumatic aortic (valve) stenosis; M06.9 Rheumatoid arthritis, unspecified; I10 Essential (primary) hypertension; M81.0 Age-related osteoporosis without current pathological fracture; E78.5 Hyperlipidemia, unspecified; F17.210 Nicotine dependence, cigarettes, uncomplicated; Z79.82 Long term (current) use of aspirin; Z79.899 Other long term (current) drug therapy; Z88.8 Allergy status to other drugs, medicaments and biological substances
CPT/HCPCS: 36415; 36600; 51701; 70450; 70551; 71045; 80048; 80076; 80307; 81001; 82140; 82550; 82553; 82607; 82746; 82803; 83605; 83930; 84443; 84484; 85025; 85027; 86780; 87040; 87486; 87581; 87633; 87798; 93005; 93041; 94640; 97161; 97530; 99285; G0378; G0480

== ENCOUNTER → 2018-12-13 | Outpatient (REF) | payer MEDICARE ==
[~2018-12-13] MED LIST changes: +ACET500T15 PO; -AMLO10TA4 PO; +AMLO10TA5 PO; +DULO1CAP PO; +FOLI1TAB11 PO; -FOLI1TAB5 PO; -LASI20TA PO; +LASI20TA3 PO; +MIRA3350 PO; +NICO14PA TD; +XALA0.007 OU
[2018-12-13 19:41] LABS: HEMATOCRIT 38.5 % (36.0-47.0); HEMOGLOBIN 12.5 g/dl (12.0-15.5); MEAN CORPUSCULAR HEMOGLOBIN 30.3 pg (27.0-33.0); MEAN CORPUSCULAR HGB CONC 32.5 g/dl (32.0-36.5); MEAN CORPUSCULAR VOLUME 93.4 fl (80.0-96.0); PLATELET COUNT, AUTOMATED 199 10^3/uL (150-450); RED BLOOD COUNT 4.12 10^6/uL (4.00-5.40); WHITE BLOOD COUNT 7.7 10^3/uL (4.0-10.0)
[2018-12-13 19:56] LABS: ALBUMIN 3.5 GM/DL (3.2-5.2); ALT/SGPT 17 U/L (12-78); BILIRUBIN,TOTAL 0.3 MG/DL (0.2-1.0); BLOOD UREA NITROGEN 19 MG/DL (7-18); CALCIUM LEVEL 9.2 MG/DL (8.8-10.2); CARBON DIOXIDE LEVEL 29 MEQ/L (21-32); CHLORIDE LEVEL 108 MEQ/L (98-107); CREATININE FOR GFR 0.54 MG/DL (0.55-1.30); GLOMERULAR FILTRATION RATE > 60.0 (>32); GLUCOSE, FASTING 99 MG/DL (70-100); POTASSIUM SERUM 4.5 MEQ/L (3.5-5.1); SODIUM LEVEL 143 MEQ/L (136-145); TOTAL PROTEIN 6.1 GM/DL (6.4-8.2)
[2018-12-13 20:09] LABS: ERYTHROCYTE SEDIMENTATION RATE 23 mm/hr (0-30)
== END ==
LOC: M SFHCADAM 12:17
PROVIDERS: ATTEND Family Medicine
DX: B02.29 Other postherpetic nervous system involvement (principal); J44.9 Chronic obstructive pulmonary disease, unspecified; M05.79 Rheumatoid arthritis with rheumatoid factor of multiple sites without organ or systems involvement; I11.9 Hypertensive heart disease without heart failure
CPT/HCPCS: 80053; 85027; 85652; G0463

== ENCOUNTER → 2019-03-26 | Outpatient (REF) | payer MEDICARE ==
[~2019-03-26] MED LIST changes: +ASPI-1 PO; -ASPI325T PO; -ASPI81CH PO; +ASPI81CH49 PO; +HYDR-3715 PO; +LATA0.0013 OU; -LATA5OPD OU; -NORCOTAB PO
[2019-03-26 20:01] LABS: HEMATOCRIT 40.5 % (36.0-47.0); HEMOGLOBIN 12.9 g/dl (12.0-15.5); MEAN CORPUSCULAR HEMOGLOBIN 30.6 pg (27.0-33.0); MEAN CORPUSCULAR HGB CONC 31.9 g/dl (32.0-36.5); MEAN CORPUSCULAR VOLUME 96.2 fl (80.0-96.0); PLATELET COUNT, AUTOMATED 258 10^3/uL (150-450); RED BLOOD COUNT 4.21 10^6/uL (4.00-5.40); WHITE BLOOD COUNT 9.9 10^3/uL (4.0-10.0)
[2019-03-26 20:19] LABS: ALBUMIN 3.1 GM/DL (3.2-5.2); ALT/SGPT 20 U/L (12-78); BILIRUBIN,TOTAL 0.3 MG/DL (0.2-1.0); BLOOD UREA NITROGEN 16 MG/DL (7-18); CALCIUM LEVEL 8.8 MG/DL (8.8-10.2); CARBON DIOXIDE LEVEL 29 MEQ/L (21-32); CHLORIDE LEVEL 106 MEQ/L (98-107); CHOLESTEROL LEVEL 142 MG/DL (<200); CHOLESTEROL RISK RATIO 3.463 (<5); CREATININE FOR GFR 0.57 MG/DL (0.55-1.30); FREE T4 0.99 NG/DL (0.76-1.46); GLOMERULAR FILTRATION RATE > 60.0 (>32); GLUCOSE, FASTING 78 MG/DL (70-100); HDL CHOLESTEROL 41 MG/DL (>40); LDL CHOLESTEROL 67 MG/DL (<100); NON-HDL-C 101 MG/DL; POTASSIUM SERUM 3.8 MEQ/L (3.5-5.1); SODIUM LEVEL 143 MEQ/L (136-145); TOTAL PROTEIN 6.7 GM/DL (6.4-8.2); TRIGLYCERIDES LEVEL 169 MG/DL (<150)
== END ==
LOC: M SFHCADAM 12:04
PROVIDERS: ATTEND Family Medicine
DX: J44.9 Chronic obstructive pulmonary disease, unspecified (principal); I11.9 Hypertensive heart disease without heart failure; R94.6 Abnormal results of thyroid function studies; E78.5 Hyperlipidemia, unspecified

== ENCOUNTER → 2019-04-17 | Outpatient (CLI) | payer MEDICARE ==
--- NOTE | 2019-04-18 07:45 | REP ---
CHEST, TWO VIEWS: Two views of the chest are performed and compared to several priors studies, most recent of which is 10/27/2018. There is no evidence of acute infiltrate. There is mild elevation of the right hemidiaphragm. The heart is normal in size and there is calcification and tortuosity of the thoracic aorta. The mediastinal silhouette is unchanged. There are degenerative changes of the spine. IMPRESSION: No acute infiltrate. Electronically Signed by Power Peterson MD 04/18/2019 09:23 A
== END ==
LOC: M ADAMS 16:38
PROVIDERS: ATTEND Family Medicine
DX: R05 Cough (principal)

== ENCOUNTER → 2019-04-23 | Outpatient (REF) | payer MEDICARE | LOC: M SFHCADAM 15:00 | PROVIDERS: ATTEND Family Medicine | DX: R32 Unspecified urinary incontinence (principal); Z53.8 Procedure and treatment not carried out for other reasons ==

== ENCOUNTER → 2019-04-24 | Outpatient (REF) | payer MEDICARE ==
[2019-04-24 15:02] LABS: APPEARANCE, URINE CLOUDY (CLEAR); BACTERIA, URINE AUTO 3+ (NEGATIVE); BILIRUBIN, URINE AUTO NEGATIVE (NEGATIVE); BLOOD, URINE BLOOD 1+ (NEGATIVE); COLOR, URINE YELLOW (YELLOW); GLUCOSE, URINE (UA) AUTO NEGATIVE (NEGATIVE); KETONE, URINE AUTO NEGATIVE (NEGATIVE); LEUKOCYTE ESTERASE, URINE AUTO TRACE (NEGATIVE); NITRITE, URINE AUTO POSITIVE (NEGATIVE); PROTEIN, URINE AUTO NEGATIVE (NEGATIVE); RBC, URINE AUTO 3 /HPF (0-3); SQUAMOUS EPITHELIAL CELL UR AU 0 /HPF (0-6); UROBILINOGEN, URINE AUTO 0.2 mg/dL (0.0-2.0); WBC, URINE AUTO 9 /HPF (0-3)
== END ==
LOC: M SFHCADAM 12:32
PROVIDERS: ATTEND Family Medicine
DX: R32 Unspecified urinary incontinence (principal)

== ENCOUNTER → 2019-07-04 | Outpatient (REF) | payer MEDICARE ==
[~2019-07-04] MED LIST changes: -DULO1CAP PO; +DULO1CAP4 PO; -OMEP20CA3 PO; +OMEP20CA4 PO
== END ==
LOC: M SFHCADAM 11:36
PROVIDERS: ATTEND Family Medicine
DX: M35.3 Polymyalgia rheumatica (principal)

== ENCOUNTER → 2019-08-20 | Outpatient (REF) | payer MEDICARE ==
[~2019-08-20] MED LIST changes: -OMEP40CA2 PO; +OMEP40CA97 PO
[2019-08-20 16:27] LABS: HEMATOCRIT 45.4 % (36.0-47.0); HEMOGLOBIN 14.2 g/dl (12.0-15.5); MEAN CORPUSCULAR HEMOGLOBIN 30.4 pg (27.0-33.0); MEAN CORPUSCULAR HGB CONC 31.3 g/dl (32.0-36.5); MEAN CORPUSCULAR VOLUME 97.2 fl (80.0-96.0); PLATELET COUNT, AUTOMATED 178 10^3/uL (150-450); RED BLOOD COUNT 4.67 10^6/uL (4.00-5.40); WHITE BLOOD COUNT 13.6 10^3/uL (4.0-10.0)
[2019-08-20 16:35] LABS: ALBUMIN 3.4 GM/DL (3.2-5.2); ALT/SGPT 16 U/L (12-78); BILIRUBIN,TOTAL 0.3 MG/DL (0.2-1.0); BLOOD UREA NITROGEN 19 MG/DL (7-18); CALCIUM LEVEL 9.9 MG/DL (8.8-10.2); CARBON DIOXIDE LEVEL 32 MEQ/L (21-32); CHLORIDE LEVEL 106 MEQ/L (98-107); CREATININE FOR GFR 0.62 MG/DL (0.55-1.30); GLOMERULAR FILTRATION RATE > 60.0 (>32); GLUCOSE, FASTING 81 MG/DL (70-100); SODIUM LEVEL 144 MEQ/L (136-145); TOTAL PROTEIN 7.3 GM/DL (6.4-8.2)
[2019-08-20 17:05] LABS: ERYTHROCYTE SEDIMENTATION RATE 11 mm/hr (0-30)
== END ==
LOC: M SFHCADAM 10:32
PROVIDERS: ATTEND Family Medicine
DX: M35.3 Polymyalgia rheumatica (principal); I11.9 Hypertensive heart disease without heart failure; Z79.01 Long term (current) use of anticoagulants

== ENCOUNTER → 2019-09-04 | Outpatient (CLI) | payer MEDICARE ==
[~2019-09-04] VITALS: Ht 154.9 cm; Wt 62.5 kg
[~2019-09-04] MED LIST changes: +ZOLEDRONIC ACID 5 MG in IV 1 EA IV ONE
[2019-09-04 15:25] VITALS: BP 132/71
[2019-09-04 16:20] VITALS: BP 153/83
== END ==
LOC: M INFU 15:02
PROVIDERS: ATTEND Family Medicine
DX: M81.0 Age-related osteoporosis without current pathological fracture (principal); Z78.0 Asymptomatic menopausal state
CPT/HCPCS: 96365; J3489

== ENCOUNTER → 2019-10-24 | Outpatient (REF) | payer MEDICARE ==
[~2019-10-24] MED LIST changes: +OMEP-172 PO; -OMEP20CA4 PO; -SIMV20TA2 PO; +SIMV20TA22 PO; -ZOLEDRONIC ACID 5 MG in IV 1 EA IV ONE
== END ==
LOC: M SFHCADAM 15:28
PROVIDERS: ATTEND Family Medicine
DX: M35.3 Polymyalgia rheumatica (principal)

== ENCOUNTER → 2020-01-07 | Outpatient (CLI) | payer MEDICARE ==
[~2020-01-07] MED LIST changes: -OMEP-172 PO; +OMEP1CAP73 PO; +ONDA-83 PO; -ONDA4TAB5 PO
--- NOTE | 2020-01-07 11:54 | REP ---
CHEST X-RAY: Two views. HISTORY: Hypoxia. COMPARISON CHEST X-RAY: April 17, 2019. FINDINGS: Right hemidiaphragm remains elevated. The lungs are well inflated and otherwise clear. Pleural angles are sharp. Heart is not felt to be enlarged. The aorta is calcific and tortuous as before. Thoracic kyphosis is somewhat exaggerated and there are degenerative disc disease changes in the thoracic spine unchanged. Pulmonary vasculature is not increased. IMPRESSION: Somewhat elevated right hemidiaphragm. Otherwise no acute disease. Electronically Signed by Kranthi Allred MD 01/07/2020 12:57 P
== END ==
LOC: M ADAMS 09:48
PROVIDERS: ATTEND Physician Assistant
DX: M51.34 Other intervertebral disc degeneration, thoracic region (principal); R60.0 Localized edema; R09.02 Hypoxemia

== ENCOUNTER → 2020-01-07 | Outpatient (REF) | payer MEDICARE ==
[2020-01-07 13:14] LABS: HEMATOCRIT 43.2 % (36.0-47.0); HEMOGLOBIN 13.5 g/dl (12.0-15.5); MEAN CORPUSCULAR HEMOGLOBIN 30.7 pg (27.0-33.0); MEAN CORPUSCULAR HGB CONC 31.3 g/dl (32.0-36.5); MEAN CORPUSCULAR VOLUME 98.2 fl (80.0-96.0); PLATELET COUNT, AUTOMATED 256 10^3/uL (150-450)
[2020-01-07 13:27] LABS: ALBUMIN 3.2 GM/DL (3.2-5.2); ALT/SGPT 18 U/L (12-78); BILIRUBIN,TOTAL 0.3 MG/DL (0.2-1.0); BLOOD UREA NITROGEN 14 MG/DL (7-18); CALCIUM LEVEL 8.9 MG/DL (8.8-10.2); CARBON DIOXIDE LEVEL 31 MEQ/L (21-32); CHLORIDE LEVEL 108 MEQ/L (98-107); CREATININE FOR GFR 0.69 MG/DL (0.55-1.30); GLOMERULAR FILTRATION RATE > 60.0 (>32); GLUCOSE, FASTING 93 MG/DL (70-100); NT-PRO BNP 359 PG/ML (<450); POTASSIUM SERUM 3.7 MEQ/L (3.5-5.1); SODIUM LEVEL 143 MEQ/L (136-145); TOTAL PROTEIN 6.2 GM/DL (6.4-8.2)
== END ==
LOC: M SFHCADAM 09:38
PROVIDERS: ATTEND Physician Assistant
DX: R60.0 Localized edema (principal)

== ENCOUNTER → 2020-03-05 | Outpatient (REF) | payer MEDICARE ==
[2020-03-05 13:21] LABS: APPEARANCE, URINE HAZY (CLEAR); BACTERIA, URINE AUTO 3+ (NEGATIVE); BILIRUBIN, URINE AUTO NEGATIVE (NEGATIVE); BLOOD, URINE BLOOD NEGATIVE (NEGATIVE); COLOR, URINE AMBER (YELLOW); GLUCOSE, URINE (UA) AUTO NEGATIVE (NEGATIVE); KETONE, URINE AUTO NEGATIVE (NEGATIVE); LEUKOCYTE ESTERASE, URINE AUTO 2+ (NEGATIVE); NITRITE, URINE AUTO NEGATIVE (NEGATIVE); PROTEIN, URINE AUTO NEGATIVE (NEGATIVE); RBC, URINE AUTO 6 /HPF (0-3); SPECIFIC GRAVITY URINE AUTO 1.024 (1.002-1.035); SQUAMOUS EPITHELIAL CELL UR AU 1 /HPF (0-6); WBC, URINE AUTO 49 /HPF (0-3)
== END ==
LOC: M SFHCADAM 12:35
PROVIDERS: ATTEND Family Medicine
DX: R41.0 Disorientation, unspecified (principal)